=== PATIENT | male | born 1985 | race Caucasian/White ===

== ENCOUNTER 2024-09-23 09:46 | Outpatient (AMB) | payer OTHER, SELFPAY ==
--- NOTE | 2024-09-23 10:04 | A.OFFVIS_ITS ---
Vital Signs 09/23/24 10:11 Height 5 ft 10 in Weight 190 lb BMI 27.3 BP 126/70 Blood Pressure Location Rt brachial Position Sitting Pulse 77 Intake Visit Reasons: follicur cyst of skin Intake Note: Patient referred by pcp Dr. Bejarano for cyst on Rt buttock. Present for 10-15yrs. Patient c/o: lost weight and now cyst became bothersome. Denies oozing, pain. Workers Compensation Claims Specialist Required: No Accompanied by: Self / Same As Patient Allergies No Known Allergies Allergy (Verified 09/23/24 10:08) Medication List - Last Reconciled 09/23/24 by Farhat Spence MD terbinafine HCl 250 mg PO DAILY HPI HPI follicur cyst of skin: Details: 38-year-old male referred for a cyst of the skin. He has had this lump on the right buttock near the gluteal cleft for over 10 years. However, this is starting to be more bothersome to him with significant discomfort when he is sitting down. He denies any previous drainage or redness. He denies any trauma to the area in the past. [facility] Medical History Cyst of buttocks Pilonidal cyst Onychomycosis Family History Mother Skin cancer Social History Alcohol intake: current Alcohol intake frequency: holidays/special occasions only Patient Tobacco Use Status: Never used Tobacco Review of Systems Const Denies chills and Denies fever(s) Card Denies chest pain, Denies dyspnea and Denies dyspnea on exertion Resp Denies cough, Denies dyspnea and Denies dyspnea on exertion GI Denies hematochezia and Denies change in bowel habits Denies hematuria and Denies difficulty urinating Musc Denies back pain and Denies limited range of motion Neuro Denies focal weakness and Denies convulsions Psych Denies depression and Denies mood swings Physical Exam Const General: comfortable and no acute distress Orientation/consciousness: patient oriented x3 Neck Neck: Yes no lymphadenopathy Resp Auscultation: clear to auscultation bilaterally Cardio Rhythm: regular rhythm GI Palpation (GI): Soft to palpation, nontender and no guarding Back/Spine/Pelvis Other: Right buttock near the gluteal cleft - cystic induration, about 1.5 cm, consistent with an epidermal cyst, non fluctuant, no erythema Neuro General: patient oriented x3 Assessment & Plan Assessment & Plan (1) Cyst of buttocks: Code(s): L72.9 - Follicular cyst of the skin and subcutaneous tissue, unspecified Category: Medical Plan He has what appears to be a buttock cyst on the right side, about 1.5 cm in diam eter. Wants this removed. I explained to him the technique of excision under local anesthesia. I reviewed the risks including but not limited to bleeding, infections, poor healing, as well as the benefits and alternatives. He understands and wants to proceed. This will be done in the office on his next visit. Coding Level of Care Code New Pt Level 3 (05868) Diagnoses Cyst of buttocks L72.9
[2024-09-23 10:11] VITALS: BP 126/70; PULSE 77; BMI 27.3
--- OUTSIDE RECORDS SUMMARY | 2024-09-23 10:37 | XMS_ITS | Data Portability ---
Author Organization [facility], Main Office Address [address] [place] [address] [place] [id number] Care Team Providers Care Motor Setter Name Role Phone LI COLINDRES Primary Care Provider [phone] Assessment No assessment recorded. Plan of Treatment Reminders Order Date Submit Date Provider Last Modified By Organization Details Last Modified Time Details Appointments telehe alth20 2024 08:30A M Li Colindres MD Not available Not available Not available Lab lipid panel, serum 2024 025 [facility], [address] [place], [address], 09/16/2024 06:14:53 CMP, serum or plasma 2024 025 [facility] (Centralized Electronic Ordering - All Locations), Patient Can Go To The Location Of Their Choice, [id number] 09/16/2024 06:14:52 unlist ed lab - syphil is Ab reflex RPR quant 2023 024 [email or web address] [facility], [address] [place], [address], 08/20/2023 11:04:40 Hepati tis C IgG Ab, qual, serum 2023 024 [email or web address] [facility], [address] [place], [address], 08/20/2023 11:04:40 HBsAg (hepat itis B surfac e Ag), EIA, serum 2023 024 [email or web address] [facility], [address], [place], [address], 08/20/2023 11:04:40 Hepati tis B virus core Ab, qual immuno assay, serum or plasma 2023 024 [email or web address] [facility], [address], [place], [address], 08/20/2023 11:04:40 CT + NG RNA, PCR, unspec ified specim en 2023 024 [email or web address] [facility], [address], [place], [address], 08/20/2023 11:04:40 HIV 1 + 2, meanin gful use set 2023 024 [email or web address] [facility], [address], [place], [address], 08/20/2023 11:04:40 lipid panel, serum 2023 024 [email or web address] [facility], [address], [place], [address], 08/06/2023 11:50:22 CBC w/ auto diff 2023 024 [facility] [facility], [address], [address], [place], [address], 11/05/2023 14:07:30 CMP, serum or plasma 2023 024 [place] [facility], [address], [address], [place], [address], 11/05/2023 14:07:29 TSH, ultra- sensit abner, serum 2023 024 [facility] (Centralized Electronic Ordering - All Locations), Patient Can Go To The Location Of Their Choice, [id number] 11/05/2023 14:07:33 magnes ium, serum or plasma 2023 024 [facility] (Centralized Electronic Ordering - All Locations), Patient Can Go To The Location Of Their Choice, [address] 11/05/2023 14:07:33 RPR (rapid plasma reagin ), titer, serum 2021 [facility], [address], [address], [place], [address], 11/30/2021 11:11:43 HIV 1+2 AB + HIV 1 p24 Ag, qualit ative immuno assay, serum 2021 022 [place] [facility], [address], [address], [place], [address], 11/30/2021 11:11:45 HBsAg (hepat itis B surfac e Ag), serum 2021 [place] [facility], [address], [address], [place], [address], 11/30/2021 11:11:45 hbcab (hepat itis B core Ab) igm, serum 2021 022 [place] [facility], [address], [address], [place], [address], 11/30/2021 11:11:44 CT + NG DNA, PCR, urine 2021 [facility] [facility], [address], [address], [place], [address], 11/30/2021 11:11:46 hepati tis C virus Ab, serum 2021 022 [place] [facility], [address], [address], [place], [address], 11/30/2021 11:11:44 lipid panel, serum 2021 022 [email or web address] [facility], [address], [address], [place], [address], 12/07/2021 16:41:23 CBC w/ auto diff 2021 [facility] [facility], [address], [address], [place], [address], 11/30/2021 11:11:45 TSH, serum or plasma 2021 022 [place] [facility], [address], [address], [place], [address], 11/30/2021 11:11:44 CMP, serum or plasma 2021 [place] [facility], [address], [address], [place], [address], 11/30/2021 11:11:44 Referral physic al therap ist referr al - Please see for LBP 2024 025 [email or web address] Not available 09/15/2024 09:45:18 physic al therap ist referr al - Please see for neck pain 2023 024 [email or web address] Not available 01/26/2024 11:18:47 physic al therap ist referr al - Please see for neck pain/ should er blade on left side 2021 022 Not available 11/30/2021 11:41:09 Procedures None record ed. Surgeries None record ed. Imaging US, buttoc k - cystic lesion right glutea l cleft. 2024 025 [email or web address] In-Office Order, Internal Use Only DO Not Attach Compendium DO Not Attach Compendium, Do Not Delete/merge, [id number] 09/20/2024 07:59:44 XR, cervic al spine 2023 024 [email or web address] [facility], [address] , [place], [address], 08/13/2023 11:42:21 XR, scapul a 2023 024 [email or web address] [facility], [address] [place], [address], 08/13/2023 11:42:21 electr ocardi ogram 2023 024 [email or web address] In-Office Order, Internal Use Only DO Not Attach Compendium DO Not Attach Compendium, Do Not Delete/merge, [id number] 07/30/2023 11:51:50 XR, chest, 2 view 2023 024 [email or web address] In-Office Order, Internal Use Only DO Not Attach Compendium DO Not Attach Compendium, Do Not Delete/merge, [id number] 08/13/2023 11:42:21 XR, cervic al spine 2021 022 [facility], [address] [place], [address], 11/30/2021 11:41:09 Medication Orders meloxi cam 15 mg tablet 2024 025 [place] [id number], [address] [place], [address], 09/15/2024 09:41:31 meloxi cam 15 mg tablet 2021 022 [email or web address] [id number], [address] [place], [address], 09/15/2024 09:00:58 cyclob enzapr ine 10 mg tablet 2021 022 [email or web address] [id number], [address] [place], [address], 07/30/2023 11:14:46 Patient TargetsNo targets recorded. Patient Instructions Encounter Date Encounter Id Patient Instructions Last Modified By Organization Details Last Modified Time 11/30/2021 [id number] neck: exercises [email or web address] Not available 11/30/2021 11:20:00 healthy upper back: exercises [email or web address] Not available 11/30/2021 11:20:00 Well Visit, Ages 18 to 65: Care Instructions [email or web address] Not available 11/30/2021 11:11:34 When You Want to Lose Weight: Care Instructions [email or web address] Not available 11/30/2021 11:11:34 07/30/2023 [id number] neck: exercises [email or web address] Not available 07/30/2023 11:28:42 healthy upper back: exercises [email or web address] Not available 07/30/2023 11:28:43 Well Visit, Ages 18 to 65: Care Instructions [email or web address] Not available 07/30/2023 11:28:42 When You Want to Lose Weight: Care Instructions [email or web address] Not available 07/30/2023 11:28:43 09/15/2024 [id number] low back pain: exercises [email or web address] Not available 09/15/2024 09:41:23 toenail fungus: care instructions [email or web address] Not available 09/15/2024 09:41:23 Reason for Referral Physical Therapist Referral for Neck pain Please see for neck pain/ shoulder blade on left side Referring Physician: Li Colindres [facility], Encounter Date: 11/30/2021 Physical Therapist Referral for Neck pain Please see for neck pain Referring Physician: Li Colindres [facility], Encounter Date: 07/30/2023 Physical Therapist Referral for Chronic low back pain Please see for LBP Referring Physician: Li Colindres [facility], Encounter Date: 09/15/2024 Results Created Date Observation Date Name Description Value Unit Range Abnormal Flag Note LastModifiedBy Organization Detail LastModifiedTime 11/03/19 24 11/04/2023 CMP14 (REFL EX HGB A1C) glucose 96 mg/dL 70-99 Not Available [facility] ([facility]) [address] [facility], [place], [address], 11/05/2023 14:07:29 11/03/19 24 11/04/2023 CMP14 (REFL EX HGB A1C) BUN 8 mg/dL 6-20 Not Available [facility] ([facility]) [address] [place], [address], 11/05/2023 14:07:29 11/03/19 24 11/04/2023 CMP14 (REFL EX HGB A1C) creatinine 0.74 mg/dL 0.76-1 .27 below low normal Not Available [facility] ([facility]) [address] [facility], [place], [address], 11/05/2023 14:07:29 11/03/19 24 11/04/2023 CMP14 (REFL EX HGB A1C) eGFR 119 mL/mi n/1.7 3 >59 Not Available [facility] ([facility]) [address] [place], [address], 11/05/2023 14:07:29 11/03/19 24 11/04/2023 CMP14 (REFL EX HGB A1C) BUN/creatini ne ratio 11 9-20 Not Available [facility] ([facility]) [address] [place], [address], 11/05/2023 14:07:29 11/03/19 24 11/04/2023 CMP14 (REFL EX HGB A1C) sodium 143 mmol/ L 134-14 4 Not Available [facility] ([facility]) [address] [place], [address], 11/05/2023 14:07:29 11/03/19 24 11/04/2023 CMP14 (REFL EX HGB A1C) potassium 4.6 mmol/ L 3.5-5. 2 Not Available [facility] ([facility]) [address] [place], [address], 11/05/2023 14:07:29 11/03/19 24 11/04/2023 CMP14 (REFL EX HGB A1C) chloride 104 mmol/ L 96-106 Not Available [facility] ([facility]) [address] [place], [address], 11/05/2023 14:07:29 11/03/19 24 11/04/2023 CMP14 (REFL EX HGB A1C) carbon dioxide, total 24 mmol/ L 20- Not Available [facility] ([facility]) [address] [place], [address], 11/05/2023 14:07:29 11/03/19 24 11/04/2023 CMP14 (REFL EX HGB A1C) calcium 9.6 mg/dL 8.7-10 .2 Not Available [facility] ([facility]) [address] [place], [address], 11/05/2023 14:07:29 11/03/19 24 11/04/2023 CMP14 (REFL EX HGB A1C) protein, total 6.9 g/dL 6.0-8. 5 Not Available [facility] ([facility]) [address] [place], [address], 11/05/2023 14:07:29 11/03/19 24 11/04/2023 CMP14 (REFL EX HGB A1C) albumin 4.7 g/dL 4.1-5. 1 Not Available [facility] ([facility]) [address] [place], [address], 11/05/2023 14:07:29 11/03/19 24 11/04/2023 CMP14 (REFL EX HGB A1C) globulin, total 2.2 g/dL 1.5-4. 5 Not Available [facility] ([facility]) [address] [place], [address], 11/05/2023 14:07:29 11/03/19 24 11/04/2023 CMP14 (REFL EX HGB A1C) bilirubin, total 0.4 mg/dL 0.0-1. 2 Not Available [facility] ([facility]) [address] [place], [address], 11/05/2023 14:07:29 11/03/19 24 11/04/2023 CMP14 (REFL EX HGB A1C) alkaline phosphatase 74 IU/L 44-121 Not Available [facility]) [address] [facility], [place], [address], 11/05/2023 14:07:29 11/03/19 24 11/04/2023 CMP14 (REFL EX HGB A1C) AST (SGOT) 22 IU/L 0-40 Not Available [facility] ([facility]) [address] [facility], [place], [address], 11/05/2023 14:07:29 11/03/19 24 11/04/2023 CMP14 (REFL EX HGB A1C) ALT (SGPT) 34 IU/L 0-44 Not Available [facility] ([facility]) [address] [facility], [place], [address], 11/05/2023 14:07:29 11/03/19 24 11/04/2023 CBC WITH DIFFE RENTI AL/PL ATELE T WBC 6.9 x10e3 /uL 3.4-10 .8 Not Available [facility] ([facility]) [address] [facility], [place], [address], 11/05/2023 14:07:30 11/03/19 24 11/04/2023 CBC WITH DIFFE RENTI AL/PL ATELE T RBC 5.00 x10e6 /uL 4.14-5 .80 Not Available [facility] ([facility]) [address] [facility], [place], [address], 11/05/2023 14:07:30 11/03/19 24 11/04/2023 CBC WITH DIFFE RENTI AL/PL ATELE T hemoglobin 15.9 g/dL 13.0-1 7.7 Not Available [facility] ([facility]) [address] [place], [address], 11/05/2023 14:07:30 11/03/19 24 11/04/2023 CBC WITH DIFFE RENTI AL/PL ATELE T hematocrit 47.7 % 37.5-5 1.0 Not Available [facility] ([facility]) [address] [facility], [place], [address], 11/05/2023 14:07:30 11/03/19 24 11/04/2023 CBC WITH DIFFE RENTI AL/PL ATELE T MCV 95 fL 79-97 Not Available [facility] ([facility]) [address] [facility], [place], [address], 11/05/2023 14:07:30 11/03/19 24 11/04/2023 CBC WITH DIFFE RENTI AL/PL ATELE T MCH 31.8 pg 26.6-3 3.0 Not Available [facility] ([facility]) [address] [facility], [place], [address], 11/05/2023 14:07:30 11/03/19 24 11/04/2023 CBC WITH DIFFE RENTI AL/PL ATELE T MCHC 33.3 g/dL 31.5-3 5.7 Not Available [facility] ([facility]) [address] [facility], [place], [address], 11/05/2023 14:07:30 11/03/19 24 11/04/2023 CBC WITH DIFFE RENTI AL/PL ATELE T RDW 12.7 % 11.6-1 5.4 Not Available [facility] ([facility]) [address] [facility], [place], [address], 11/05/2023 14:07:30 11/03/19 24 11/04/2023 CBC WITH DIFFE RENTI AL/PL ATELE T platelets 262 x10e3 /uL 150-45 0 Not Available [facility] ([facility]) [address] [place], [address], 11/05/2023 14:07:30 11/03/19 24 11/04/2023 CBC WITH DIFFE RENTI AL/PL ATELE T neutrophils 69 % not estab. Not Available [facility] ([facility]) [address] [place], [address], 11/05/2023 14:07:30 11/03/19 24 11/04/2023 CBC WITH DIFFE RENTI AL/PL ATELE T lymphs 19 % not estab. Not Available [facility] ([facility]) [address] [facility], [place], [address], 11/05/2023 14:07:30 11/03/19 24 11/04/2023 CBC WITH DIFFE RENTI AL/PL ATELE T monocytes 9 % not estab. Not Available [facility] ([facility]) [address] [facility], [place], [address], 11/05/2023 14:07:30 11/03/19 24 11/04/2023 CBC WITH DIFFE RENTI AL/PL ATELE T eos 2 % not estab. Not Available [facility] ([facility]) [address] [facility], [place], [address], 11/05/2023 14:07:30 11/03/19 24 11/04/2023 CBC WITH DIFFE RENTI AL/PL ATELE T basos 1 % not estab. Not Available [facility] ([facility]) [address] [facility], [place], [address], 11/05/2023 14:07:30 11/03/19 24 11/04/2023 CBC WITH DIFFE RENTI AL/PL ATELE T immature cells CLIENT APPLICATION SUPPORT ENGINEER Not Available [facility] ([facility]) [address] [facility], [place], [address], 11/05/2023 14:07:30 11/03/19 24 11/04/2023 CBC WITH DIFFE RENTI AL/PL ATELE T neutrophils (absolute) 4.8 x10e3 /uL 1.4-7. 0 Not Available [facility] ([facility]) [address] [facility], [place], [address], 11/05/2023 14:07:30 11/03/19 24 11/04/2023 CBC WITH DIFFE RENTI AL/PL ATELE T lymphs (absolute) 1.3 x10e3 /uL 0.7-3. 1 Not Available [facility] ([facility]) [address] [facility], [place], [address], 11/05/2023 14:07:30 11/03/19 24 11/04/2023 CBC WITH DIFFE RENTI AL/PL ATELE T monocytes(ab solute) 0.6 x10e3 /uL 0.1-0. 9 Not Available [facility] ([facility]) [address] [facility], [place], [address], 11/05/2023 14:07:30 11/03/19 24 11/04/2023 CBC WITH DIFFE RENTI AL/PL ATELE T eos (absolute) 0.1 x10e3 /uL 0.0-0. 4 Not Available [facility] ([facility]) [address] [facility], [place], [address], 11/05/2023 14:07:30 11/03/19 24 11/04/2023 CBC WITH DIFFE RENTI AL/PL ATELE T baso (absolute) 0.1 x10e3 /uL 0.0-0. 2 Not Available [facility] ([facility]) [address] [facility], [place], [address], 11/05/2023 14:07:30 11/03/19 24 11/04/2023 CBC WITH DIFFE RENTI AL/PL ATELE T immature granulocytes 0 % not estab. Not Available [facility] ([facility]) [address] [place], [address], 11/05/2023 14:07:30 11/03/19 24 11/04/2023 CBC WITH DIFFE RENTI AL/PL ATELE T immature grans (abs) 0.0 x10e3 /uL 0.0-0. 1 Not Available [facility] ([facility]) [address] [place], [address], 11/05/2023 14:07:30 11/03/19 24 11/04/2023 CBC WITH DIFFE RENTI AL/PL ATELE T NRBC CLIENT APPLICATION SUPPORT ENGINEER Not Available [facility] ([facility]) [address] [facility], [place], [address], 11/05/2023 14:07:30 11/03/19 24 11/04/2023 CBC WITH DIFFE RENTI AL/PL ATELE T hematology comments: CLIENT APPLICATION SUPPORT ENGINEER Not Available [facility] ([facility]) [address] [place], [address], 11/05/2023 14:07:30 11/03/19 24 11/04/2023 LIPID PANEL cholesterol, total 200 mg/dL 100-19 9 above high normal Not Available [facility] ([facility]) [address] [place], [address], 11/05/2023 14:07:30 11/03/19 24 11/04/2023 LIPID PANEL triglyceride s 161 mg/dL 0-149 above high normal Not Available [facility] ([facility]) [address] [place], [address], 11/05/2023 14:07:30 11/03/19 24 11/04/2023 LIPID PANEL HDL cholesterol 42 mg/dL >39 Not Available [facility] ([facility]) [address] [place], [address], 11/05/2023 14:07:30 11/03/19 24 11/04/2023 LIPID PANEL VLDL cholesterol elen 29 mg/dL 5-40 Not Available [facility] ([facility]) [address] [place], [address], 11/05/2023 14:07:30 11/03/19 24 11/04/2023 LIPID PANEL LDL chol calc ([facility]) 129 mg/dL 0-99 above high normal Not Available [facility] ([facility]) [address] [place], [address], 11/05/2023 14:07:30 11/03/19 24 11/04/2023 LIPID PANEL LDL calc comment: CLIENT APPLICATION SUPPORT ENGINEER Not Available [facility] ([facility]) [address] [facility], [place], [address], 11/05/2023 14:07:30 11/03/19 24 11/04/2023 CHLAM YDIA/ GC AMPLI FICAT ION chlamydia trachomatis, MATTHEW Negati ve negati ve Not Available [facility] ([facility]) [address] [facility], [place], [address], 11/05/2023 14:07:31 11/03/19 24 11/04/2023 CHLAM YDIA/ GC AMPLI FICAT ION neisseria gonorrhoeae, MATTHEW Negati ve negati ve Not Available [facility] ([facility]) [address] [facility], [place], [address], 11/05/2023 14:07:31 11/03/19 24 11/04/2023 HCV ANTIB LUCSA RFX TO QUANT PCR HCV Ab Non Reacti ve non reacti ve Not Available [facility] ([facility]) [address] [facility], [place], [address], 11/05/2023 14:07:31 11/03/19 24 11/04/2023 HCV ANTIB LUCAS RFX TO QUANT PCR interpretati on: Commen t Not infec amelia with HCV unles s early or acute infec tion is suspe cted (whic h may be delay ed in an immun ocomp romis ed indiv idual ), or other evide nce exist s to indic ate HCV infec tion. Not Available [facility] ([facility]) [address] [facility], [place], [address], 11/05/2023 14:07:31 11/03/19 24 11/04/2023 HIV AB/P2 4 AG WITH REFLE X HIV Ab/P24 Ag screen Non Reacti ve non reacti ve HIV Negat abner HIV-1 /HIV- 2 antib odies and HIV-1 p24 antig en were NOT detec amelia. There is no labor atory evide nce of HIV infec tion. Not Available [facility] ([facility]) [address] [facility], [place], [address], 11/05/2023 14:07:32 11/03/19 24 11/05/2023 SYPHI LIS AB REFLE X RPR QUANT donor syphilis (T pallidum) Non Reacti ve non reacti ve Test perfo rmed with [employer] er PK TP kit. Not Available [facility] ([facility]) [address] [facility], [place], [address], 11/05/2023 14:07:32 11/03/19 24 11/04/2023 TSH RFX ON ABNOR MAL TO FREE T4 TSH 1.730 uIU/m L 0.450- 4.500 Not Available [facility] ([facility]) [address] [facility], [place], [address], 11/05/2023 14:07:33 11/03/19 24 11/04/2023 MAGNE SIUM magnesium 2.1 mg/dL 1.6-2. 3 Not Available [facility] ([facility]) [address] [place], [address], 11/05/2023 14:07:33 11/03/19 24 11/04/2023 HBSAG SCREE N HBsAg screen Negati ve negati ve Not Available [facility] ([facility]) [address] [place], [address], 11/05/2023 14:07:34 11/03/19 24 11/04/2023 HEP B CORE AB, TOT hep B core Ab, tot Negati ve negati ve Not Available [facility] ([facility]) [address] [place], [address], 11/05/2023 14:07:34 09/16/19 25 09/16/2024 CMP14 (REFL EX HGB A1C) glucose 98 mg/dL 70-99 normal Not Available [facility] ([facility]) [address] [place], [address], 09/16/2024 06:14:52 09/16/19 25 09/16/2024 CMP14 (REFL EX HGB A1C) BUN 13 mg/dL 6-20 normal Not Available [facility] ([facility]) [address] [place], [address], 09/16/2024 06:14:52 09/16/19 25 09/16/2024 CMP14 (REFL EX HGB A1C) creatinine 0.85 mg/dL 0.76-1 .27 normal Not Available [facility] ([facility]) [address] [place], [address], 09/16/2024 06:14:52 09/16/19 25 09/16/2024 CMP14 (REFL EX HGB A1C) eGFR 113 mL/mi n/1.7 3 >59 normal Not Available [facility] ([facility]) [address] [place], [address], 09/16/2024 06:14:52 09/16/19 25 09/16/2024 CMP14 (REFL EX HGB A1C) BUN/creatini ne ratio 15 9-20 normal Not Available [facility] ([facility]) [address] [place], [address], 09/16/2024 06:14:52 09/16/19 25 09/16/2024 CMP14 (REFL EX HGB A1C) sodium 143 mmol/ L 134-14 4 normal Not Available [facility] ([facility]) [address] [place], [address], 09/16/2024 06:14:52 09/16/19 25 09/16/2024 CMP14 (REFL EX HGB A1C) potassium 4.4 mmol/ L 3.5-5. 2 normal Not Available [facility] ([facility]) [address] [place], [address], 09/16/2024 06:14:52 09/16/19 25 09/16/2024 CMP14 (REFL EX HGB A1C) chloride 102 mmol/ L 96-106 normal Not Available [facility] ([facility]) [address] [place], [address], 09/16/2024 06:14:52 09/16/19 25 09/16/2024 CMP14 (REFL EX HGB A1C) carbon dioxide, total 21 mmol/ L 20-29 normal Not Available [facility] ([facility]) [address] [place], [address], 09/16/2024 06:14:52 09/16/1909/16/2024 CMP14 (REFL EX HGB A1C) calcium 10.0 mg/dL 8.7-10 .2 normal Not Available [facility] ([facility]) [address] [place], [address], 09/16/2024 06:14:52 09/16/1909/16/2024 CMP14 (REFL EX HGB A1C) protein, total 7.2 g/dL 6.0-8. 5 normal Not Available [facility] ([facility]) [address] [place], [address], 09/16/2024 06:14:52 09/16/19 25 09/16/2024 CMP14 (REFL EX HGB A1C) albumin 5.2 g/dL 4.1-5. 1 above high normal Not Available [facility] ([facility]) [address] [place], [address], 09/16/2024 06:14:52 09/16/19 25 09/16/2024 CMP14 (REFL EX HGB A1C) globulin, total 2.0 g/dL 1.5-4. 5 Not Available [facility] ([facility]) [address] [facility] [place] [place], [address], 09/16/2024 06:14:52 09/16/19 25 09/16/2024 CMP14 (REFL EX HGB A1C) bilirubin, total 0.4 mg/dL 0.0-1. 2 normal Not Available [facility] ([facility]) [address] [facility] [place], [address], 09/16/2024 06:14:52 09/16/19 25 09/16/2024 CMP14 (REFL EX HGB A1C) alkaline phosphatase 72 IU/L 44-121 normal Not Available [facility] ([facility]) [address] [facility] [place], [address], 09/16/2024 06:14:52 09/16/19 25 09/16/2024 CMP14 (REFL EX HGB A1C) AST (SGOT) 17 IU/L 0-40 normal Not Available [facility] ([facility]) [address] [facility] [place], [address], 09/16/2024 06:14:52 09/16/1909/16/2024 CMP14 (REFL EX HGB A1C) ALT (SGPT) 27 IU/L 0-44 normal Not Available [facility] ([facility]) [address] [place], [address], 09/16/2024 06:14:52 09/16/19 25 09/16/2024 LIPID PANEL cholesterol, total 188 mg/dL 100-19 9 normal Not Available [facility] ([facility]) [address] [place], [address], 09/16/2024 06:14:53 09/16/19 25 09/16/2024 LIPID PANEL triglyceride s 72 mg/dL 0-149 normal Not Available [facility] ([facility]) [address] [place], [address], 09/16/2024 06:14:53 09/16/19 25 09/16/2024 LIPID PANEL HDL cholesterol 44 mg/dL >39 normal Not Available [facility] ([facility]) [address] [facility], [place], [address], 09/16/2024 06:14:53 09/16/19 25 09/16/2024 LIPID PANEL VLDL cholesterol elen 13 mg/dL 5-40 Not Available [facility] ([facility]) [address] [facility], [place], [address], 09/16/2024 06:14:53 09/16/19 25 09/16/2024 LIPID PANEL LDL chol calc ([facility]) 131 mg/dL 0-99 above high normal Not Available [facility] ([facility]) [address] [facility], [place], [address], 09/16/2024 06:14:53 09/16/19 25 09/16/2024 LIPID PANEL LDL calc comment: CLIENT APPLICATION SUPPORT ENGINEER Not Available [facility] ([facility]) [address] [facility], [place], [address], 09/16/2024 06:14:53 07/30/19 24 07/30/2023 elect rocar diogr am No observ ation record ed. [email or web address] In-Office Order Internal Use Only DO Not Attach Compendium DO Not Attach Compendium, Do Not Delete/merge, [id number] 07/30/2023 16:29:15 07/30/19 elect rocar diogr am No observ ation record ed. [email or web address] In-Office Order Internal Use Only DO Not Attach Compendium DO Not Attach Compendium, Do Not Delete/merge, [id number] 07/30/2023 12:26:54 10/29/19 24 10/29/2023 XR, scapu la Scapul a Left 2 views Reason : pain in should er COMPAR RADHA: None. FINDIN GS: No fractu res or bone lesion s. No arthri tic change s. Normal soft tissue s. IMPRES DAVID: Normal . WSN: [id number] Orderi ng Physic aide: Kinga Colindres Dictat ed By: Ladonna Prince MD Dictat ed Date/T gunnar: 12:51 p Review ed By: Kathleen king MD, Ladonna mercer Signed By: Ladonna Prince MD Signed Date/T gunnar: 12:51 pm Transc ribed By: LIANNE Transc ribed Date/T gunnar: 12:51 pm Patien t Class: Outpat ient [facility] (Outpt Imaging) [address], [place], [address], 10/30/2023 10:26:29 10/29/19 24 10/29/2023 XR, scapu la No observ ation record ed. [email or web address] [facility] [address] [facility], [place], [address], 10/30/2023 11:51:43 09/21/19 25 09/20/2024 US, pelvi s US Soft Tissue Pelvis / Buttoc ks Reason : L72.9 Follic ular cyst of the skin and subcut aneous tissue , unspec ified. Patien t report s 10-yea r histor y of nonten oscar palpab le findin g with slight increa se in size. COMPAR RADHA: None. FINDIN GS: High-r esolut ion, linear array, graysc chioma and color Dopple r imagin g of the superf icial soft tissue s of the right buttoc k was perfor med in the area of the patien t's palpab le findin g. Corres pondin g to the patien t's palpab le findin g, there is a well-c ircums cribed hetero geneou sly isoech oic focus within the subcut aneous fat measur ing 1.2 x 0.7 x 1.3 cm. It produc es mild rough and truing machine operator ior acoust ic shadow ing and there is no signif icant music internship al vascul arity on color Dopple r imagin g. It exhibi ts broad contac t with the dermis withou t defini te tract to the skin surfac e IMPRES DAVID: The patien t's palpab le findin g corres ponds to a 1.3 cm hetero geneou sly isoech oic focus within the subcut aneous fat. The sonogr aphic appear ance is nonspe cific, althou gh patien t-repo rted relati ve stabil ity favors a benign etiolo gy. Differ ential includ es epider mal inclus ion or pilar cyst, althou gh rough and truing machine operator ior acoust ic shadow would be atypic al. A focus of fat necros is could also be consid ered. If the patien t's palpab le findin g increa ses in size or become s progre ssivel y sympto matic, correl ation with MRI could be consid ered. WSN: [id number] Orderi ng Physic aide: Kinga Colindres Dictat ed By: Roddy Frost MD Dictat ed Date/T gunnar: 4:24 pm Review ed By: Roddy Frost MD Signed By: Roddy Frost MD Signed Date/T gunnar: 4:24 pm Transc ribed By: LIANNE Transc ribed Date/T gunnar: 4:07 pm Patien t Class: Outpat ient [facility] (Outpt Imaging) [address] [facility], [place], [address], 09/20/2024 18:58:19 09/21/19 25 09/20/2024 imagi ng/damián steve tic resul t No observ ation record ed. [email or web address] [address], [place], [address], 09/20/2024 17:00:54 Result Notes None recorded. Problems Name Problem SNOMED Code Status Onset Date Resolution Date Notes Provider Name and Address Organization Details Recorded Time Overweight 240685713 Active 022 Li Colindres MD [address] [facility] [address], [place], [address], [facility] 2 11:11:00 Problem Notes None recorded. Procedures Surgical History Date Name Laterality Status Provider Name and Address Organization Details Recorded Time removal of pilonidal cyst completed Anum Medina [facility] 11/30/2021 10:31:52 extraction of wisdom tooth completed Anum Medina [facility] 11/30/2021 10:31:59 Imaging Results Imaging Date Name Status LastModified by Organization Details LastModified Time 07/30/2023 electrocardiogram completed jabari In- Office Order Internal Use Only DO Not Attach Compendium DO Not Attach Compendium, Do Not Delete/merge, [id number] 07/30/2023 16:29:15 07/30/2023 electrocardiogram completed jolynn In-Offi ce Order Internal Use Only DO Not Attach Compendium DO Not Attach Compendium, Do Not Delete/merge, [id number] 07/30/2023 12:26:54 10/29/2023 XR, scapula completed [facility] (Outpt Imaging) [address] [place], [address], 10/30/2023 10:26:29 10/29/2023 XR, scapula completed [address] [facility] [address], [place], [address], 10/30/2023 11:51:43 09/20/2024 US, pelvis completed [facility] (Outpt Imaging) [address] [place], [address], 09/20/2024 18:58:19 09/20/2024 [facility] [address], [place], [address], 09/20/2024 17:00:54 Procedure Notes None recorded. Medical Equipment None Reported. Allergies No known drug allergies Medications Name Sig Start Date Stop Date Status Note LastModified by Organization Details LastModified Time cyclobenzapr ine 10 mg tablet Take 1 tablet every day by oral route as needed for 5 days. 07/29 completed Not Available Not Available Not Available meloxicam 15 mg tablet Take 1 tablet every day by oral route as needed for 30 days. 2024 active Not Available Not Available Not Avai lable terbinafine HCl 250 mg tablet Take 1 tablet every day by oral route for 42 days. 2024 active Not Available Not Available Not Avai lable Multivitamin Gummies 2 gummies daily 09/15 completed Not Available Not Available Not Available Vitals Date Recorded Body height Body mass index (BMI) Body weight Heart rate Oxygen saturation Oxygen saturation in Arterial blood by Pulse oximetry Body temperature Systolic blood pressure Diastolic blood pressure Provider Name and Address Organization Details Last Updated DateTime 2 182.88 cm 28.4 kg/m2 72766.5 1 g 67 /min 97 % 97 % 98.06 [degF] 120 mm[Hg] 78 mm[Hg] Anum Medina [facility] 2 10:35:07 Date Recorded Body height Body mass index (BMI) Body weight Heart rate Oxygen saturation Oxygen saturation in Arterial blood by Pulse oximetry Body temperature Systolic blood pressure Diastolic blood pressure Provider Name and Address Organization Details Last Updated DateTime 4 182.88 cm 27.3 kg/m2 27150.1 7 g 77 /min 97 % 97 % 97.9 [degF] 111 mm[Hg] 70 mm[Hg] Arianne Arboleda [facility] 4 11:14:22 Date Recorded Body height Body mass index (BMI) Body weight Oxygen saturation Oxygen saturation in Arterial blood by Pulse oximetry Body temperature Heart rate Systolic blood pressure Diastolic blood pressure Provider Name and Address Organization Details Last Updated DateTime 5 182.88 cm 25.6 kg/m2 05829.1 7 g 100 % 100 % 97.7 [degF] 67 /min 110 mm[Hg] 70 mm[Hg] Hansa Velasquez [facility] 5 08:59:59 Social History Question Answer Notes LastModified by Organizat ion Details LastModified Time Tobacco Smoking Status [facility]/30[facility] 10:42:28 Is Blood Transfusion Acceptable In An Emergency? Yes Information not available 11/30/2021 What Is Your Level Of Caffeine Consumption? Heavy 1 Pot Of Black Coffee Daily Information not available 11/30/2021 How Much Tobacco Do You Chew? None Information not available 11/30/2021 What Type Of Diet Are You Following? REGULAR Information not available 11/30/2021 Which Illicit Or Recreational Drugs Have You Used? Marijuana Information not available 11/30/2021 When Did You Quit Smoking? 11-15yearssin ronny te Quit In 2007 Information not available 11/30/2021 Do You Take Precautions To Prevent Distracted Driving? Yes Information not available 11/30/2021 How Often Do You Need To Have Someone Help You When You Read Instructions, Pamphlets, Or Other Written Material From Your Doctor Or Pharmacy? Never Information not available 11/30/2021 Have You Served In The ? No [email or web address] Information not available 09/15/2024 How Many Children Do You Have? 0 Information not available 11/30/2021 What Is Your Current Pack Years? 10packyears Information not available 11/30/2021 Do You Use Protection During Sex? Usually Information not available 11/30/2021 Do You Use Your Seat Belt Or Car Seat Routinely? Yes Information not available 11/30/2021 Are You Sexually Active? No Information not available 11/30/2021 Do You Have Smoke And Carbon Monoxide Detectors In Your Home? Yes Information not available 11/30/2021 At What Age Did You Start Smoking Tobacco? 17 Information not available 11/30/2021 Are You Passively Exposed To Smoke? No Information not available 11/30/2021 How Much Tobacco Do You Smoke? No Information not available 11/30/2021 Do You Use Sunscreen Routinely? Yes Information not available 11/30/2021 How Many Years Have You Smoked Tobacco? 8 Information not available 11/30/2021 Sex: Unknown Functional Status Question Answer Note LastModified by Organizat ion Details LastModified Time Do you use any illicit or recreational drugs? Yes Information not available 11/30/2021 Do you or have you ever used any other forms of tobacco or nicotine? No Information not available 11/30/2021 What is your level of alcohol consumption? Occasional Only a few times a year samm Information not available 07/30/2023 Do you or have you ever used smokeless tobacco? Never used smokeless tobacco Information not available 11/30/2021 Are you currently employed? Yes Information not available 11/30/2021 Are you able to walk? YESWOREST Information not available 11/30/2021 Are you able to care for yourself? 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 Occasional Information not available 11/30/2021 Mental Status None recorded. Family History Relationship Description Onset Age of this Age Resolved Age Notes LastModified by Organization Details LastModified Time Father Diabetes mellitus Not available 2021 10:21:37 Mother Obstructive sleep apnea syndrome ckokar Not available 2023 12:29:16 Medical History Condition Response ADHD Y Chicken Pox Y Immunizations Vaccine Type Date Status Note Provider Nam e and Address Organization Details Recorded Time COVID-19, mRNA, LNP-S, PF, 30 mcg/0.3 mL dose 09/20/2020 completed [facility] 11/30/2021 10:29:48 COVID-19, mRNA, LNP-S, PF, 30 mcg/0.3 mL dose 08/30/2020 completed HERMES Rae [facility] 11/30/2021 10:29:49 COVID-19, mRNA, LNP-S, PF, 100 mcg/0.5mL dose or 50 mcg/0.25mL dose 04/27/2021 completed HERMES [facility] 07/30/2023 11:14:03 Tdap 10/28/2023 completed Not Available [facility] 09/15/2024 08:49:57 Past Encounters Encounter ID Performer Location Encounter Start Date Encounter Closed Date Diagnosis/Indication Diagnosis SNOMED-CT Code Diagnosis ICD10 Code Diagnosis Note [id number] Li Colindres MD Main Office [address] [facility] [address] [place] [address] 11/30/2021 10:07:21 11/30/2021 11:41:08 Adult health examination 628401106 Z00.00 Patient was counseled on healthy diet, exercise and nutrition due to Body mass index is 28.4 kg/m? ? ?. Prostate/C olon CA hx?: no fhx, asymptomat ic Vaccines:T dAP: script providedZo ster Rec: not [id number]: not dueInfluen za: not in seaonCovid : 08/30/20, 09/20/20, 04/23/21 Routine labs today, with STI workup Immunizati on status reviewed. Will screen based on risk factors. Regular dental and ophtho care advised as well as seat belt and sunscreen use. Distracted driving discussed. Medication reconciled . Fatigue 77089117 R53.83 Hyperlipidemia 92271686 E78.5 Venereal d isease screening 716897876 Z11.3 Patient ne w to provider [id number] 91323 Z76.89 Administra tion of viral vaccine 64023692 Z23 Body mass index 25-29 - overweight 577429277 E66.3 Z68.25 - Diet and exercise discussed- Encouraged to loose weight.- Avoid starchy and fatty food- Encouraged use of green vegetables and fruits Overweight 376163556 E66 .3 Snoring 11720947 R06.83 Neck pain 68476753 M54.2 Cervicalgi a with radiculopa thy.Risk of sedation with MSK relaxant advised. He is aware not to operate machinery, MV or drink while on meds.Take mobic with food and avoid other NSAIDSent for PT/exercis es provided. Scapulalgia 55238370 M25 .519 [id number] Li Colindres MD Main Office [address] [facility] [address] [place] [place] [address] 07/30/2023 10:55:33 07/30/2023 11:51:49 Adult health examination 461461841 Z00.00 Patient was counseled on healthy diet, exercise and nutrition due to Body mass index is 27.3 kg/m? ? ?. Prostate/C olon CA hx?: no fhx, asymptomat ic Vaccines:T dAP: script providedZo ster Rec: not eptJVX07: not dueInfluen za: not in seasonCovi d: Encourage updated vaccine. Routine labs today, with STI workup Immunizati on status reviewed. Will screen based on risk factors. Regular dental and ophtho care advised as well as seat belt and sunscreen use. Distracted driving discussed. Medication reconciled . Fatigue 56987571 R53.83 Hyperlipidemia 05674935 E78.5 Administra tion of viral vaccine 31523737 Z23 Body mass index 25-29 - overweight 936694064 E66.3 Z68.25 - Diet and exercise discussed- Encouraged to loose weight.- Avoid starchy and fatty food- Encouraged use of green vegetables and fruits Overweight 005142246 E66 .3 Snoring 96978378 R06.83 He will work on weight loss first if he continue to snore he will let me know and we can consider having him see sleep med.His mom has TOBI Venereal d isease screening 154017228 Z20.2 Z11.3 Z72.89 Scapulalgia 18302453 M25 .519 Neck pain 57006284 M54.2 Cervicalgi a with radiculopa thy.Radicu lopathy sx improved.M eloxicam and msk relaxant did not help.PT provided some relief, but cut it short due to cost, open to restarting - referral provided.H e did not get x-ray as instructio n.If no improvemen t he will call and can consider physiatry eval. Chest discomfort 6639635 09 R07.89 occurred 2 weeks ago, feels like msk but not reproducib le on palpation. Occurs when he stretches. I suspect this is msk related as it occurs when stretching but will get baseline ECG.ED precaution discussed. Stretching exercises advised.If no improvemen t he was advised to call. [id number] Li Colindres MD Main Office [address] [facility] [address] [facility] [place] [address] 09/15/2024 08:48:23 09/15/2024 09:45:18 Adult health examination 591714250 Z00.00 Patient was counseled on healthy diet, exercise and nutrition due to Body mass index is 25.6 kg/m? ? ?. Prostate/C olon CA hx?: no fhx, asymptomat ic Vaccines:T dAP: 10/28/23Zos ter Rec: not [id number]: not dueInfluen za: not in seasonCovi d: Encourage updated vaccine. Routine labs today Immunizati on status reviewed. Will screen based on risk factors. Regular dental and ophtho care advised as well as seat belt and sunscreen use. Distracted driving discussed. Medication reconciled . Onychomycosis 125221217 B35.1 Will tx after I get lft. He is aware he will need to repeat LFT 6 weeks after I send tx due to hepatic toxicity. Will follow up tele health 7 weeks. Fatigue 37467089 R53.83 Z00.00 Hyperlipidemia 72169867 E78.5 Z00.00 FASTING Chronic low back pain 27 9759865 M54.42 G89.29 with radiculopa thy.Will send Meloxicam aware not to use with other otc nsaid, advised to take with meal and hydration enforced.E ncouraged PTCan consider xray if no improvemen t.If no improvemen t will consider MRI/physia try eval after trial po steroid/ga bapentin/m sk relaxant. Cyst of skin 225757364 L 72.9 No drainage warmth or erythema hard mobile nodular lesion will get US the consider surgeon eval as it is bothering him. No sign of infection or role in abx. Health Concerns Section Related Observation LastModified by Organization Detai ls LastModified Time None Recorded Concern Status LastModified by Organization Details LastModified Time None Recorded Advance Directives Directive None Recorded Payers Encounter Date Sequence Insurance Name Policy Number Policy Bowman Covered Member ID Bowman Member ID Guarantor Name 11/30/2021 1 [facility] [id number] Ruddy Romero [id number] 1 Willie Romero 07/30/2023 1 [facility] [id number] Ruddy Romero [id number] 1 Willie Romero 09/15/2024 1 [facility] [id number] Ruddy Romero [id number] 1 Willie Romero Notes Date Note Type Note Provider Name and Address Organization Details Recorded Time 11/30/2021 text/html Back PainReporte d bypatient.Location :from neck radiates to finger tips Quality:tingling Severity:worsening Duration:2 yrs Context:unusual activity Alleviating Factors:relieved by changing position Aggravating Factors:extended neck Associated Symptoms:no fever; no weak limbs; no numbness of the legs/feet; no incontinence; no shortness of breath;tingling Patient present for well/new adult visit Complaints: Is not using ASA. OTC/Herbal supplements use: Rare use of mulitvitamin. Sex hx: Not active pref. for F.STI: deniesDrug use: marijuana smoke/edibleEtoh use: rare.tobacco use: former smoker last used 2007, 1 ppd for 8yrsspf/derm: wears occasionally, notes moles on back. Dental: up to date follows every 6mo.Eye: due, advised followsDiet: no restrictionActivit y: walk dogs and 1/week 3-4mile walk Li Colindres MD [address], [address] 11/30/2021 11:36:40 07/30/2023 text/html Angina/Chest PainReported bypatient.Location :chest; Does not radiates. Quality:tightness Severity:not limiting Duration:lasts seconds Context:Not tender to touch, does not occur when leaning forward. Aggravating Factors:worse with activity(stretchin g back) Associated Symptoms:no dyspnea; no decrease in exercise capacity; no fatigue; no nocturnal episodes; no resting episodes; no associated palpitations; no associated dizziness; no calf pain, no travel in last 4 weeks. Here for PE visit. Reviewed chronic medications and medical problems. Discussed screening guidelines as well as goals for fitness and weight management. Brittany feliz, [facility] 08/07/2023 10:27:35 09/15/2024 text/html Back PainReporte d bypatient.Location :pain radiating to the buttocks;pain radiating to the legs Quality:tingling Severity:worsening Duration:acute; chronic Onset/Timing:Start ed in july. Context:prior back problems Aggravating Factors:movement/p ositioning Associated Symptoms:no fever; no weak limbs; no numbness of the legs/feet; no incontinence; no shortness of breath Here for PE visit. Reviewed chronic medications and medical problems. Discussed screening guidelines as well as goals for fitness and weight management.Cut out red-bull, lost weight, and is being laid of with a package, mentally doing well.Notices rectal lump that gets irritated, he has had it for years and has never brought it up.Also has concern regarding recurrence regarding toe nail fungus in left big. Li Colindres MD [address] [facility] [address], [place], [address], [facility] 09/15/2024 09:44:41
== END 2024-09-23 10:24 | disposition home or self-care (01) ==
LOC: HO.HGS 09:46
PROVIDERS: PCP Internal Medicine; Visit Provider Surgery
DX: L72.9 Follicular cyst of the skin and subcutaneous tissue, unspecified (principal)
CPT/HCPCS: 99203

== ENCOUNTER → 2024-09-23 09:46 | Outpatient (BNVA) | payer OTHER, SELFPAY | PROVIDERS: PCP Internal Medicine; Visit Provider Surgery ==

== ENCOUNTER 2024-10-21 09:35 | Outpatient (REF) | payer OTHER, SELFPAY | END 2024-10-21 09:36 | disposition home or self-care (01) | LOC: HO.LNP 09:35 | PROVIDERS: PCP Internal Medicine; Visit Provider Surgery | DX: L72.9 Follicular cyst of the skin and subcutaneous tissue, unspecified (principal) | CPT/HCPCS: 11402; 88304 ==

== ENCOUNTER 2024-10-21 09:35 | Outpatient (AMB) | payer OTHER, SELFPAY ==
--- NOTE | 2024-10-21 10:00 | MHC.OFFVIS ---
Vital Signs 10/21/24 10:01 Height 5 ft 10 in Weight 192 lb BMI 27.5 BP 130/61 Blood Pressure Location Rt brachial Position Sitting Pulse 63 Intake Visit Reasons: follicular cyst skin excision Intake Note: Patient here for excision of cyst on Rt buttock. 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 [facility] Medical History Cyst of buttocks Pilonidal cyst Onychomycosis Family History Mother Skin cancer Social History Alcohol intake: current Alcohol intake frequency: holidays/special occasions only Patient Tobacco Use Status: Never used Tobacco Physical Exam Vital Signs: Last Vital Signs Pulse 63 10/21/24 10:01 BP 130/61 10/21/24 10:01 BMI result Body Mass Index 27.5 Office Procedures Excision Details: He was in prone position. The area of the cyst on the right buttock was prepped and draped. Lidocaine 1% was used for local anesthesia. I made an elliptical incision in the skin overlying the cystic induration using blade 15. This was carried down through the full-thickness of the skin and subcutaneous fat to excise this entire indurated area. This was sent as a specimen. This measured about 2 cm in diameter I then closed the incision with full-thickness nylon 3-0 simple interrupted sutures. Dressings were applied. The procedure was completed. He tolerated the procedure well. There were no immediate complications. There was minimal blood loss. 59077-gjkhw/arms/legs 1.1-2cm Procedure code (CPT) selection complete Assessment & Plan Assessment & Plan (1) Cyst of buttocks: Code(s): L72.9 - Follicular cyst of the skin and subcutaneous tissue, unspecified Category: Medical Plan: Excision was done under local anesthesia. He tolerated the procedure well. He was given wound care instructions. I will see him in the office for removal sutures in about 2 weeks Orders: Orders Surgical Today L72.9 - Follicular cyst of the skin and subcutaneous tissue, unspecified Coding Level of Care Code Procedure Only Diagnoses Cyst of buttocks L72.9 CPT Codes Trunk/Arms/Legs - CPT: 49175-pwhgm/arms/legs 1.1-2cm ([id number])
[2024-10-21 10:01] VITALS: BP 130/61; PULSE 63; BMI 27.5
--- OUTSIDE RECORDS SUMMARY | 2024-10-21 10:33 | XMS_ITS | Data Portability ---
Author Organization [facility], Main Office Address [address] [place] [address] [place] [id number] Care Team Providers Care Roll Weigher Name Role Phone LI COLINDRES Primary Care Provider Assessment No assessment recorded. Plan of Treatment Reminders Order Date Submit Date Provider Last Modified By Organization Details Last Modified Time Details Appointments telehe alth20 2024 08:30A M iL Colindres MD Not available Not available Not available Lab lipid panel, serum 2024 025 [facility], [address] [place], [address], 09/16/2024 06:14:53 CMP, serum or plasma 2024 025 [facility] (Centralized Electronic Ordering - All Locations), Patient Can Go To The Location Of Their Choice, [id number] 09/16/2024 06:14:52 unlist ed lab - syphil is Ab reflex RPR quant 2023 024 [email or web address] [facility], [address] [place], [address], 08/20/2023 11:04:40 Hepati tis C IgG Ab, qual, serum 2023 024 [email or web address] [facility], [address] [place], [address], 08/20/2023 11:04:40 HBsAg (hepat itis B surfac e Ag), EIA, serum 2023 024 [email or web address] [facility], [address], [place], [address], 08/20/2023 11:04:40 Hepati tis B virus core Ab, qual immuno assay, serum or plasma 2023 024 [email or web address] [facility], [address], [place], [address], 08/20/2023 11:04:40 CT + NG RNA, PCR, unspec ified specim en 2023 024 [email or web address] [facility], [address], [place], [address], 08/20/2023 11:04:40 HIV 1 + 2, meanin gful use set 2023 024 [email or web address] [facility], [address], [place], [address], 08/20/2023 11:04:40 lipid panel, serum 2023 024 [email or web address] [facility], [address], [address], [place], [address], 08/06/2023 11:50:22 CBC w/ auto diff 2023 024 [facility] [facility], [address], [address], [place], [address], 11/05/2023 14:07:30 CMP, serum or plasma 2023 024 [place] [facility], [address], [address], [place], [address], 11/05/2023 14:07:29 TSH, ultra- sensit abner, serum 2023 024 [facility] (Centralized Electronic Ordering - All Locations), Patient Can Go To The Location Of Their Choice, [id number] 11/05/2023 14:07:33 magnes ium, serum or plasma 2023 024 [facility] (Centralized Electronic Ordering - All Locations), Patient Can Go To The Location Of Their Choice, [id number] 11/05/2023 14:07:33 RPR (rapid plasma reagin ), titer, serum 2021 [facility], [address], [address], [place], [address], 11/30/2021 11:11:43 HIV 1+2 AB + HIV 1 p24 Ag, qualit ative immuno assay, serum 2021 022 [place] [facility], [address], [address], [place], [address], 11/30/2021 11:11:45 HBsAg (hepat itis B surfac e Ag), serum 2021 [facility] [facility], [address], [address], [place], [address], 11/30/2021 11:11:45 hbcab (hepat itis B core Ab) igm, serum 2021 022 [place] [facility], [address], [address], [place], [address], 11/30/2021 11:11:44 CT + NG DNA, PCR, urine 2021 [facility] [facility], [address], [address], [place], [address], 11/30/2021 11:11:46 hepati tis C virus Ab, serum 2021 022 [facility] [facility], [address], [address], [place], [address], 11/30/2021 11:11:44 lipid panel, serum 2021 022 [email or web address] [facility], [address], [address], [place], [address], 12/07/2021 16:41:23 CBC w/ auto diff 2021 [facility] [facility], [address], [address], [place], [address], 11/30/2021 11:11:45 TSH, serum or plasma 2021 022 [place] [facility], [address], [address], [place], [address], 11/30/2021 11:11:44 CMP, serum or plasma 2021 [place] [facility], [address], [address], [place], [address], 11/30/2021 11:11:44 Referral physic al therap ist referr al - Please see for LBP 2024 025 [email or web address] Not available 09/15/2024 09:45:18 physic al therap ist referr al - Please see for neck pain 2023 024 [email or web address] Not available 01/26/2024 11:18:47 physic al therap ist referr al - Please see for neck pain/ should er blade on left side 2021 022 [email or web address] Not available 11/30/2021 11:41:09 Procedures None record ed. Surgeries None record ed. Imaging US, buttoc k - cystic lesion right glutea l cleft. 2024 025 In-Office Order, Internal Use Only DO Not Attach Compendium DO Not Attach Compendium, Do Not Delete/merge, [id number] 09/20/2024 07:59:44 XR, cervic al spine 2023 024 [email or web address] [facility], [address] , [place], [address], 08/13/2023 11:42:21 XR, scapul a 2023 024 [email or web address] [facility], [address] [place], [address], 08/13/2023 11:42:21 electr ocardi ogram 2023 024 [email or web address] In-Office Order, Internal Use Only DO Not Attach Compendium DO Not Attach Compendium, Do Not Delete/merge, [id number] 07/30/2023 11:51:50 XR, chest, 2 view 2023 024 [email or web address] In-Office Order, Internal Use Only DO Not Attach Compendium DO Not Attach Compendium, Do Not Delete/merge, [id number] 08/13/2023 11:42:21 XR, cervic al spine 2021 022 [facility], [address] [place], [address], 11/30/2021 11:41:09 Medication Orders meloxi cam 15 mg tablet 2024 025 [place] [id number], [address] [place], [address], 09/15/2024 09:41:31 meloxi cam 15 mg tablet 2021 022 [email or web address] [id number], [address] [place], [address], 09/15/2024 09:00:58 cyclob enzapr ine 10 mg tablet 2021 022 [email or web address] [id number], [address] [place], [address], 07/30/2023 11:14:46 Patient TargetsNo targets recorded. Patient Instructions Encounter Date Encounter Id Patient Instructions Last Modified By Organization Details Last Modified Time 11/30/2021 [id number] neck: exercises [email or web address] Not available 11/30/2021 11:20:00 healthy upper back: exercises [email or web address] Not available 11/30/2021 11:20:00 Well Visit, Ages 18 to 65: Care Instructions [email or web address] Not available 11/30/2021 11:11:34 When You Want to Lose Weight: Care Instructions [email or web address] Not available 11/30/2021 11:11:34 07/30/2023 [id number] neck: exercises [email or web address] Not available 07/30/2023 11:28:42 healthy upper back: exercises [email or web address] Not available 07/30/2023 11:28:43 Well Visit, Ages 18 to 65: Care Instructions [email or web address] Not available 07/30/2023 11:28:42 When You Want to Lose Weight: Care Instructions [email or web address] Not available 07/30/2023 11:28:43 09/15/2024 [id number] low back pain: exercises [email or web address] Not available 09/15/2024 09:41:23 toenail fungus: care instructions [email or web address] Not available 09/15/2024 09:41:23 Reason for Referral Physical Therapist Referral for Neck pain Please see for neck pain/ shoulder blade on left side Referring Physician: Li Colindres [facility], Encounter Date: 11/30/2021 Physical Therapist Referral for Neck pain Please see for neck pain Referring Physician: Li Colindres [facility], Encounter Date: 07/30/2023 Physical Therapist Referral for Chronic low back pain Please see for LBP Referring Physician: Li Colindres [facility] Sam, Encounter Date: 09/15/2024 Results Created Date Observation Date Name Description Value Unit Range Abnormal Flag Note LastModifiedBy Organization Detail LastModifiedTime 11/03/19 24 11/04/2023 CMP14 (REFL EX HGB A1C) glucose 96 mg/dL 70-99 Not Available [facility] ([facility]) [address] [facility], [place], [address], 11/05/2023 14:07:29 11/03/19 24 11/04/2023 CMP14 (REFL EX HGB A1C) BUN 8 mg/dL 6-20 Not Available [facility] ([facility]) [address] [place], [address], 11/05/2023 14:07:29 11/03/19 24 11/04/2023 CMP14 (REFL EX HGB A1C) creatinine 0.74 mg/dL 0.76-1 .27 below low normal Not Available [facility] ([facility]) [address] [facility], [place], [address], 11/05/2023 14:07:29 11/03/19 24 11/04/2023 CMP14 (REFL EX HGB A1C) eGFR 119 mL/mi n/1.7 3 >59 Not Available [facility] ([facility]) [address] [place], [address], 11/05/2023 14:07:29 11/03/19 24 11/04/2023 CMP14 (REFL EX HGB A1C) BUN/creatini ne ratio 11 9-20 Not Available [facility] ([facility]) [address] [place], [address], 11/05/2023 14:07:29 11/03/19 24 11/04/2023 CMP14 (REFL EX HGB A1C) sodium 143 mmol/ L 134-14 4 Not Available [facility] ([facility]) [address] [place], [address], 11/05/2023 14:07:29 11/03/19 24 11/04/2023 CMP14 (REFL EX HGB A1C) potassium 4.6 mmol/ L 3.5-5. 2 Not Available [facility] ([facility]) [address] [place], [address], 11/05/2023 14:07:29 11/03/19 24 11/04/2023 CMP14 (REFL EX HGB A1C) chloride 104 mmol/ L 96-106 Not Available [facility] ([facility]) [address] [place], [address], 11/05/2023 14:07:29 11/03/19 24 11/04/2023 CMP14 (REFL EX HGB A1C) carbon dioxide, total 24 mmol/ L 20- Not Available [facility] ([facility]) [address] [place], [address], 11/05/2023 14:07:29 11/03/19 24 11/04/2023 CMP14 (REFL EX HGB A1C) calcium 9.6 mg/dL 8.7-10 .2 Not Available [facility] ([facility]) [address] [place], [address], 11/05/2023 14:07:29 11/03/19 24 11/04/2023 CMP14 (REFL EX HGB A1C) protein, total 6.9 g/dL 6.0-8. 5 Not Available [facility] ([facility]) [address] [place], [address], 11/05/2023 14:07:29 11/03/19 24 11/04/2023 CMP14 (REFL EX HGB A1C) albumin 4.7 g/dL 4.1-5. 1 Not Available [facility] ([facility]) [address] [place], [address], 11/05/2023 14:07:29 11/03/19 24 11/04/2023 CMP14 (REFL EX HGB A1C) globulin, total 2.2 g/dL 1.5-4. 5 Not Available [facility] ([facility]) [address] [place], [address], 11/05/2023 14:07:29 11/03/19 24 11/04/2023 CMP14 (REFL EX HGB A1C) bilirubin, total 0.4 mg/dL 0.0-1. 2 Not Available [facility] ([facility]) [address] [place], [address], 11/05/2023 14:07:29 11/03/19 24 11/04/2023 CMP14 (REFL EX HGB A1C) alkaline phosphatase 74 IU/L 44-121 Not Available [facility]) [address] [facility], [place], [address], 11/05/2023 14:07:29 11/03/19 24 11/04/2023 CMP14 (REFL EX HGB A1C) AST (SGOT) 22 IU/L 0-40 Not Available [facility] ([facility]) [address] [facility], [place], [address], 11/05/2023 14:07:29 11/03/19 24 11/04/2023 CMP14 (REFL EX HGB A1C) ALT (SGPT) 34 IU/L 0-44 Not Available [facility] ([facility]) [address] [facility], [place], [address], 11/05/2023 14:07:29 11/03/19 24 11/04/2023 CBC WITH DIFFE RENTI AL/PL ATELE T WBC 6.9 x10e3 /uL 3.4-10 .8 Not Available [facility] ([facility]) [address] [facility], [place], [address], 11/05/2023 14:07:30 11/03/19 24 11/04/2023 CBC WITH DIFFE RENTI AL/PL ATELE T RBC 5.00 x10e6 /uL 4.14-5 .80 Not Available [facility] ([facility]) [address] [facility], [place], [address], 11/05/2023 14:07:30 11/03/19 24 11/04/2023 CBC WITH DIFFE RENTI AL/PL ATELE T hemoglobin 15.9 g/dL 13.0-1 7.7 Not Available [facility] ([facility]) [address] [place], [address], 11/05/2023 14:07:30 11/03/19 24 11/04/2023 CBC WITH DIFFE RENTI AL/PL ATELE T hematocrit 47.7 % 37.5-5 1.0 Not Available [facility] ([facility]) [address] [facility], [place], [address], 11/05/2023 14:07:30 11/03/19 24 11/04/2023 CBC WITH DIFFE RENTI AL/PL ATELE T MCV 95 fL 79-97 Not Available [facility] ([facility]) [address] [facility], [place], [address], 11/05/2023 14:07:30 11/03/19 24 11/04/2023 CBC WITH DIFFE RENTI AL/PL ATELE T MCH 31.8 pg 26.6-3 3.0 Not Available [facility] ([facility]) [address] [facility], [place], [address], 11/05/2023 14:07:30 11/03/19 24 11/04/2023 CBC WITH DIFFE RENTI AL/PL ATELE T MCHC 33.3 g/dL 31.5-3 5.7 Not Available [facility] ([facility]) [address] [facility], [place], [address], 11/05/2023 14:07:30 11/03/19 24 11/04/2023 CBC WITH DIFFE RENTI AL/PL ATELE T RDW 12.7 % 11.6-1 5.4 Not Available [facility] ([facility]) [address] [facility], [place], [address], 11/05/2023 14:07:30 11/03/19 24 11/04/2023 CBC WITH DIFFE RENTI AL/PL ATELE T platelets 262 x10e3 /uL 150-45 0 Not Available [facility] ([facility]) [address] [place], [address], 11/05/2023 14:07:30 11/03/19 24 11/04/2023 CBC WITH DIFFE RENTI AL/PL ATELE T neutrophils 69 % not estab. Not Available [facility] ([facility]) [address] [place], [address], 11/05/2023 14:07:30 11/03/19 24 11/04/2023 CBC WITH DIFFE RENTI AL/PL ATELE T lymphs 19 % not estab. Not Available [facility] ([facility]) [address] [facility], [place], [address], 11/05/2023 14:07:30 11/03/19 24 11/04/2023 CBC WITH DIFFE RENTI AL/PL ATELE T monocytes 9 % not estab. Not Available [facility] ([facility]) [address] [facility], [place], [address], 11/05/2023 14:07:30 11/03/19 24 11/04/2023 CBC WITH DIFFE RENTI AL/PL ATELE T eos 2 % not estab. Not Available [facility] ([facility]) [address] [facility], [place], [address], 11/05/2023 14:07:30 11/03/19 24 11/04/2023 CBC WITH DIFFE RENTI AL/PL ATELE T basos 1 % not estab. Not Available [facility] ([facility]) [address] [facility], [place], [address], 11/05/2023 14:07:30 11/03/19 24 11/04/2023 CBC WITH DIFFE RENTI AL/PL ATELE T immature cells BUSINESS OBJECTS CONSULTANT Not Available [facility] ([facility]) [address] [facility], [place], [address], 11/05/2023 14:07:30 11/03/19 24 11/04/2023 CBC WITH DIFFE RENTI AL/PL ATELE T neutrophils (absolute) 4.8 x10e3 /uL 1.4-7. 0 Not Available [facility] ([facility]) [address] [facility], [place], [address], 11/05/2023 14:07:30 11/03/19 24 11/04/2023 CBC WITH DIFFE RENTI AL/PL ATELE T lymphs (absolute) 1.3 x10e3 /uL 0.7-3. 1 Not Available [facility] ([facility]) [address] [facility], [place], [address], 11/05/2023 14:07:30 11/03/19 24 11/04/2023 CBC WITH DIFFE RENTI AL/PL ATELE T monocytes(ab solute) 0.6 x10e3 /uL 0.1-0. 9 Not Available [facility] ([facility]) [address] [facility], [place], [address], 11/05/2023 14:07:30 11/03/19 24 11/04/2023 CBC WITH DIFFE RENTI AL/PL ATELE T eos (absolute) 0.1 x10e3 /uL 0.0-0. 4 Not Available [facility] ([facility]) [address] [facility], [place], [address], 11/05/2023 14:07:30 11/03/19 24 11/04/2023 CBC WITH DIFFE RENTI AL/PL ATELE T baso (absolute) 0.1 x10e3 /uL 0.0-0. 2 Not Available [facility] ([facility]) [address] [facility], [place], [address], 11/05/2023 14:07:30 11/03/19 24 11/04/2023 CBC WITH DIFFE RENTI AL/PL ATELE T immature granulocytes 0 % not estab. Not Available [facility] ([facility]) [address] [place], [address], 11/05/2023 14:07:30 11/03/19 24 11/04/2023 CBC WITH DIFFE RENTI AL/PL ATELE T immature grans (abs) 0.0 x10e3 /uL 0.0-0. 1 Not Available [facility] ([facility]) [address] [place], [address], 11/05/2023 14:07:30 11/03/19 24 11/04/2023 CBC WITH DIFFE RENTI AL/PL ATELE T NRBC BUSINESS OBJECTS CONSULTANT Not Available [facility] ([facility]) [address] [facility], [place], [address], 11/05/2023 14:07:30 11/03/19 24 11/04/2023 CBC WITH DIFFE RENTI AL/PL ATELE T hematology comments: BUSINESS OBJECTS CONSULTANT Not Available [facility] ([facility]) [address] [place], [address], 11/05/2023 14:07:30 11/03/19 24 11/04/2023 LIPID PANEL cholesterol, total 200 mg/dL 100-19 9 above high normal Not Available [facility] ([facility]) [address] [place], [address], 11/05/2023 14:07:30 11/03/19 24 11/04/2023 LIPID PANEL triglyceride s 161 mg/dL 0-149 above high normal Not Available [facility] ([facility]) [address] [place], [address], 11/05/2023 14:07:30 11/03/19 24 11/04/2023 LIPID PANEL HDL cholesterol 42 mg/dL >39 Not Available [facility] ([facility]) [address] [place], [address], 11/05/2023 14:07:30 11/03/19 24 11/04/2023 LIPID PANEL VLDL cholesterol elen 29 mg/dL 5-40 Not Available [facility] ([facility]) [address] [place], [address], 11/05/2023 14:07:30 11/03/19 24 11/04/2023 LIPID PANEL LDL chol calc (rust) 129 mg/dL 0-99 above high normal Not Available [facility] ([facility]) [address] [facility] [place], [address], 11/05/2023 14:07:30 11/03/19 24 11/04/2023 LIPID PANEL LDL calc comment: BUSINESS OBJECTS CONSULTANT Not Available [facility] ([facility]) [address] [facility], [place], [address], 11/05/2023 14:07:30 11/03/19 24 11/04/2023 CHLAM YDIA/ GC AMPLI FICAT ION chlamydia trachomatis, MATTHEW Negati ve negati ve Not Available [facility] ([facility]) [address] [facility], [place], [address], 11/05/2023 14:07:31 11/03/19 24 11/04/2023 CHLAM YDIA/ GC AMPLI FICAT ION neisseria gonorrhoeae, MATTHEW Negati ve negati ve Not Available [facility] ([facility]) [address] [facility], [place], [address], 11/05/2023 14:07:31 11/03/19 24 11/04/2023 HCV ANTIB LUCAS RFX TO QUANT PCR HCV Ab Non Reacti ve non reacti ve Not Available [facility] ([facility]) [address] [facility], [place], [address], 11/05/2023 14:07:31 11/03/19 24 11/04/2023 HCV ANTIB LUCAS RFX TO QUANT PCR interpretati on: Commen t Not infec amelia with HCV unles s early or acute infec tion is suspe cted (whic h may be delay ed in an immun ocomp romis ed indiv idual ), or other evide nce exist s to indic ate HCV infec tion. Not Available [facility] ([facility]) [address] [facility], [place], [address], 11/05/2023 14:07:31 11/03/19 24 11/04/2023 HIV AB/P2 4 AG WITH REFLE X HIV Ab/P24 Ag screen Non Reacti ve non reacti ve HIV Negat abner HIV-1 /HIV- 2 antib odies and HIV-1 p24 antig en were NOT detec amelia. There is no labor atory evide nce of HIV infec tion. Not Available [facility] ([facility]) [address] [facility], [place], [address], 11/05/2023 14:07:32 11/03/19 24 11/05/2023 SYPHI LIS AB REFLE X RPR QUANT donor syphilis (T pallidum) Non Reacti ve non reacti ve Test perfo rmed with [facility] (Listn)t er PK TP kit. Not Available [facility] ([facility]) [address] [facility], [place], [address], 11/05/2023 14:07:32 11/03/19 24 11/04/2023 TSH RFX ON ABNOR MAL TO FREE T4 TSH 1.730 uIU/m L 0.450- 4.500 Not Available [facility] ([facility]) [address] [facility], [place], [address], 11/05/2023 14:07:33 11/03/19 24 11/04/2023 MAGNE SIUM magnesium 2.1 mg/dL 1.6-2. 3 Not Available [facility] ([facility]) [address] [place], [address], 11/05/2023 14:07:33 11/03/19 24 11/04/2023 HBSAG SCREE N HBsAg screen Negati ve negati ve Not Available [facility] ([facility]) [address] [place], [address], 11/05/2023 14:07:34 11/03/19 24 11/04/2023 HEP B CORE AB, TOT hep B core Ab, tot Negati ve negati ve Not Available [facility] ([facility]) [address] [place], [address], 11/05/2023 14:07:34 09/16/19 25 09/16/2024 CMP14 (REFL EX HGB A1C) glucose 98 mg/dL 70-99 normal Not Available [facility] ([facility]) [address] [place], [address], 09/16/2024 06:14:52 09/16/19 25 09/16/2024 CMP14 (REFL EX HGB A1C) BUN 13 mg/dL 6-20 normal Not Available [facility] ([facility]) [address] [place], [address], 09/16/2024 06:14:52 09/16/19 25 09/16/2024 CMP14 (REFL EX HGB A1C) creatinine 0.85 mg/dL 0.76-1 .27 normal Not Available [facility] ([facility]) [address] [place], [address], 09/16/2024 06:14:52 09/16/19 25 09/16/2024 CMP14 (REFL EX HGB A1C) eGFR 113 mL/mi n/1.7 3 >59 normal Not Available [facility] ([facility]) [address] [place], [address], 09/16/2024 06:14:52 09/16/19 25 09/16/2024 CMP14 (REFL EX HGB A1C) BUN/creatini ne ratio 15 9-20 normal Not Available [facility] ([facility]) [address] [place], [address], 09/16/2024 06:14:52 09/16/19 25 09/16/2024 CMP14 (REFL EX HGB A1C) sodium 143 mmol/ L 134-14 4 normal Not Available [facility] ([facility]) [address] [place], [address], 09/16/2024 06:14:52 09/16/19 25 09/16/2024 CMP14 (REFL EX HGB A1C) potassium 4.4 mmol/ L 3.5-5. 2 normal Not Available [facility] ([facility]) [address] [place], [address], 09/16/2024 06:14:52 09/16/19 25 09/16/2024 CMP14 (REFL EX HGB A1C) chloride 102 mmol/ L 96-106 normal Not Available [facility] ([facility]) [address] [place], [address], 09/16/2024 06:14:52 09/16/19 25 09/16/2024 CMP14 (REFL EX HGB A1C) carbon dioxide, total 21 mmol/ L 20-29 normal Not Available [facility] ([facility]) [address] [place], [address], 09/16/2024 06:14:52 09/16/1909/16/2024 CMP14 (REFL EX HGB A1C) calcium 10.0 mg/dL 8.7-10 .2 normal Not Available [facility] ([facility]) [address] [place], [address], 09/16/2024 06:14:52 09/16/1909/16/2024 CMP14 (REFL EX HGB A1C) protein, total 7.2 g/dL 6.0-8. 5 normal Not Available [facility] ([facility]) [address] [place], [address], 09/16/2024 06:14:52 09/16/19 25 09/16/2024 CMP14 (REFL EX HGB A1C) albumin 5.2 g/dL 4.1-5. 1 above high normal Not Available [facility] ([facility]) [address] [place], [address], 09/16/2024 06:14:52 09/16/19 25 09/16/2024 CMP14 (REFL EX HGB A1C) globulin, total 2.0 g/dL 1.5-4. 5 Not Available [facility] ([facility]) [address] [facility] [place], [address], 09/16/2024 06:14:52 09/16/19 25 09/16/2024 CMP14 (REFL EX HGB A1C) bilirubin, total 0.4 mg/dL 0.0-1. 2 normal Not Available [facility] ([facility]) [address] [facility] [place], [address], 09/16/2024 06:14:52 09/16/19 25 09/16/2024 CMP14 (REFL EX HGB A1C) alkaline phosphatase 72 IU/L 44-121 normal Not Available [facility] ([facility]) [address] [facility] [place], [address], 09/16/2024 06:14:52 09/16/19 25 09/16/2024 CMP14 (REFL EX HGB A1C) AST (SGOT) 17 IU/L 0-40 normal Not Available [facility] ([facility]) [address] [facility] [place], [address], 09/16/2024 06:14:52 09/16/1909/16/2024 CMP14 (REFL EX HGB A1C) ALT (SGPT) 27 IU/L 0-44 normal Not Available [facility] ([facility]) [address] [place], [address], 09/16/2024 06:14:52 09/16/19 25 09/16/2024 LIPID PANEL cholesterol, total 188 mg/dL 100-19 9 normal Not Available [facility] ([facility]) [address] [place], [address], 09/16/2024 06:14:53 09/16/19 25 09/16/2024 LIPID PANEL triglyceride s 72 mg/dL 0-149 normal Not Available [facility] ([facility]) [address] [place], [address], 09/16/2024 06:14:53 09/16/19 25 09/16/2024 LIPID PANEL HDL cholesterol 44 mg/dL >39 normal Not Available [facility] ([facility]) [address] [facility], [place], [address], 09/16/2024 06:14:53 09/16/19 25 09/16/2024 LIPID PANEL VLDL cholesterol elen 13 mg/dL 5-40 Not Available [facility] ([facility]) [address] [facility], [place], [address], 09/16/2024 06:14:53 09/16/19 25 09/16/2024 LIPID PANEL LDL chol calc (rust) 131 mg/dL 0-99 above high normal Not Available [facility] ([facility]) [address] [facility], [place], [address], 09/16/2024 06:14:53 09/16/19 25 09/16/2024 LIPID PANEL LDL calc comment: BUSINESS OBJECTS CONSULTANT Not Available [facility] ([facility]) [address] [facility], [place], [address], 09/16/2024 06:14:53 07/30/19 24 07/30/2023 elect rocar diogr am No observ ation record ed. [email or web address] In-Office Order Internal Use Only DO Not Attach Compendium DO Not Attach Compendium, Do Not Delete/merge, [id number] 07/30/2023 16:29:15 07/30/19 elect rocar diogr am No observ ation record ed. [email or web address] In-Office Order Internal Use Only DO Not Attach Compendium DO Not Attach Compendium, Do Not Delete/merge, [id number] 07/30/2023 12:26:54 10/29/19 24 10/29/2023 XR, scapu la Scapul a Left 2 views Reason : pain in should er COMPAR RADHA: None. FINDIN GS: No fractu res or bone lesion s. No arthri tic change s. Normal soft tissue s. IMPRES DAVID: Normal . WSN: [id number] Orderi ng Physic aide: Kinga Colindres Dictat ed By: Ladonna Prince MD Dictat ed Date/T gunnar: 12:51 p Review ed By: Kathleen king MD, Ladonna mercer Signed By: Ladonna Prince MD Signed Date/T gunnar: 12:51 pm Transc ribed By: LIANNE Transc ribed Date/T gunnar: 12:51 pm Patien t Class: Outpat ient [facility] (Outpt Imaging) [address], [place], [address], 10/30/2023 10:26:29 10/29/19 24 10/29/2023 XR, scapu la No observ ation record ed. [facility] [address] [facility], [place], [address], 10/30/2023 11:51:43 09/21/19 25 09/20/2024 US, pelvi [...] x 1.3 cm. It produc es mild extrusion manager ior acoust ic shadow ing and there is no signif icant financial analyst intern al vascul arity on color Dopple r [...] inclus ion or pilar cyst, althou gh extrusion manager ior acoust ic shadow would be atypic al. A focus of fat necros is could also be consid ered. If the patien t's palpab le findin g increa ses in size or become s progre ssivel y sympto matic, correl ation with MRI could be consid ered. WSN: [id number] Orderi ng Physic aide: Kinga Colindres Dictat ed By: Roddy Frost MD Dictat ed Date/T gunnar: 4:24 pm Review ed By: Roddy Frost MD Signed By: Roddy Frost MD Signed Date/T gunnar: 4:24 pm Transc ribed By: LIANNE Transc ribed Date/T gunnar: 4:07 pm Patien t Class: Outpat ient [facility] (Outpt Imaging) [address] [facility], [place], [address], 09/20/2024 18:58:19 09/21/19 25 09/20/2024 US, butto ck No observ ation record ed. [email or web address] In-Office Order Internal Use Only DO Not Attach Compendium DO Not Attach Compendium, Do Not Delete/merge, [id number] 09/23/2024 11:09:25 Result Notes None recorded. Problems Name Problem SNOMED Code Status Onset Date Resolution Date Notes Provider Name and Address Organization Details Recorded Time Overweight 115296997 Active 022 Li Colindres MD [address] [facility] [address], [place], [address], [facility] 2 11:11:00 Problem Notes None recorded. Procedures Surgical History Date Name Laterality Status Provider Name and Address Organization Details Recorded Time removal of pilonidal cyst completed Anum Medina MA [facility] 11/30/2021 10:31:52 extraction of wisdom tooth completed Anum Medina MA [facility] 11/30/2021 10:31:59 Imaging Results None recorded. Procedure Notes None recorded. Medical Equipment None [...] Updated DateTime 4 182.88 cm 27.3 kg/m2 06261.1 7 g 77 /min 97 % 97 % 97.9 [degF] 111 mm[Hg] 70 mm[Hg] Arianne Arboleda [facility] 4 11:14:22 Date Recorded Body height Body mass index (BMI) Body weight Oxygen saturation Oxygen saturation in Arterial blood by Pulse oximetry Body temperature Heart rate Systolic blood pressure Diastolic blood pressure Provider Name and Address Organization Details Last Updated DateTime 5 182.88 cm 25.6 kg/m2 36460.1 7 g 100 % 100 % 97.7 [degF] 67 /min 110 mm[Hg] 70 mm[Hg] Hansa Velasquez MA [facility] 5 08:59:59 Date Recorded Body height Body mass index (BMI) Body weight Heart rate Oxygen saturation Oxygen saturation in Arterial blood by Pulse oximetry Body temperature Systolic blood pressure Diastolic blood pressure Provider Name and Address Organization Details Last Updated DateTime 182.88 cm 28.4 kg/m2 76120.5 1 g 67 /min 97 % 97 % 98.06 [degF] 120 mm[Hg] 78 mm[Hg] Anum Medina MA [facility] 10:35:07 Social History Question Answer Notes LastModified by Organizat ion Details LastModified Time Tobacco Smoking Status Former Smoker HERMES Rae [facility] 11/30/2021 10:42:28 Is Blood Transfusion Acceptable In [...] 11/30/2021 When Did You Quit Smoking? 11-15yearssin celastcigaret te Quit In 2007 Information not available 11/30/2021 Do You Take Precautions To Prevent Distracted Driving? Yes Information not available 11/30/2021 How Often Do You Need To Have Someone Help You When You Read Instructions, Pamphlets, Or Other Written Material From Your Doctor Or Pharmacy? Never Information not available 11/30/2021 Have You Served In The ? No [email or web address] Information not available 09/15/2024 How Many Children [...] Occasional Only a few times a year [email or web address] Information not available 07/30/2023 Do you or have you ever used smokeless tobacco? Never used smokeless tobacco Information not available 11/30/2021 Are you currently employed? Yes Information not available 11/30/2021 Are you able to walk? YESWOREST Information not available 11/30/2021 Are you able to care for yourself? 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 not available 11/30/2021 What is your [...] Immunizations Vaccine Type Date Status Note Provider Miguelito melendez and Address Organization Details Recorded Time COVID-19, mRNA, LNP-S, PF, 30 mcg/0.3 mL dose 09/20/2020 completed Anum Medina [facility] 11/30/2021 10:29:48 COVID-19, mRNA, LNP-S, PF, 30 mcg/0.3 mL dose 08/30/2020 completed HERMES Rae [facility] 11/30/2021 10:29:49 COVID-19, mRNA, LNP-S, PF, 100 mcg/0.5mL dose or 50 mcg/0.25mL dose 04/27/2021 completed HERMES Alvarez [facility] 07/30/2023 11:14:03 Tdap 10/28/2023 completed Not Available [facility] 09/15/2024 08:49:57 Past Encounters Encounter ID Performer Location Encounter Start Date Encounter Closed Date Diagnosis/Indication Diagnosis SNOMED-CT Code Diagnosis ICD10 Code Diagnosis Note [id number] Li Colindres MD Main Office [address] [facility] [address] [facility] [place] [address] 11/30/2021 10:07:21 11/30/2021 11:41:08 Adult health examination 597553734 Z00.00 Patient was counseled on healthy diet, exercise and nutrition due to Body mass index is 28.4 kg/m? ? ?. Prostate/C olon CA hx?: no fhx, asymptomat ic Vaccines:T dAP: script providedZo ster Rec: not [id number]: not dueInfluen za: not in seaonCovid : 08/30/20, 09/20/20, 04/23/21 Routine labs today, with STI workup Immunizati on status reviewed. Will screen based on risk factors. Regular dental and ophtho care advised as well as seat belt and sunscreen use. Distracted driving discussed. Medication reconciled . Fatigue 08143021 R53.83 Hyperlipidemia 18512459 E78.5 Venereal d isease screening 761033204 Z11.3 Patient ne w to provider [id number] 90217 Z76.89 Administra tion of viral vaccine 11055541 Z23 Body mass index 25-29 - overweight 279369808 E66.3 Z68.25 - Diet and exercise discussed- Encouraged to loose weight.- Avoid starchy and fatty food- Encouraged use of green vegetables and fruits Overweight 769080605 E66 .3 Snoring 95595016 R06.83 Neck pain 10014980 M54.2 Cervicalgi a with radiculopa thy.Risk of sedation with MSK relaxant advised. He is aware not to operate machinery, MV or drink while on meds.Take mobic with food and avoid other NSAIDSent for PT/exercis es provided. Scapulalgia 41932194 M25 .519 [id number] Li Colindres MD Main Office [address] [facility] [address] [facility] [place] [address] 07/30/2023 10:55:33 07/30/2023 11:51:49 Adult health examination 241645720 Z00.00 Patient was counseled on healthy diet, exercise and nutrition due to Body mass index is 27.3 kg/m? ? ?. Prostate/C olon CA hx?: no fhx, asymptomat ic Vaccines:T dAP: script providedZo ster Rec: not [id number]: not dueInfluen za: not in seasonCovi d: Encourage updated vaccine. Routine labs today, with STI workup Immunizati on status reviewed. Will screen based on risk factors. Regular dental and ophtho care advised as well as seat belt and sunscreen use. Distracted driving discussed. Medication reconciled . Fatigue 98518503 R53.83 Hyperlipidemia 70880420 E78.5 Administra tion of viral vaccine 42216550 Z23 Body mass index 25-29 - overweight 394407534 E66.3 Z68.25 - Diet and exercise discussed- Encouraged to loose weight.- Avoid starchy and fatty food- Encouraged use of green vegetables and fruits Overweight 728998246 E66 .3 Snoring 64387956 R06.83 He will work on weight loss first if he continue to snore he will let me know and we can consider having him see sleep med.His mom has TOBI Venereal d isease screening 730604725 Z20.2 Z11.3 Z72.89 Scapulalgia 81493935 M25 .519 Neck pain 57884924 M54.2 Cervicalgi a with radiculopa thy.Radicu lopathy sx improved.M eloxicam and msk relaxant did not help.PT provided some relief, but cut it short due to cost, open to restarting - referral provided.H e did not get x-ray as instructio n.If no improvemen t he will call and can consider physiatry eval. Chest discomfort 1912800 09 R07.89 occurred 2 weeks ago, feels like msk but not reproducib le on palpation. Occurs when he stretches. I suspect this is msk related as it occurs when stretching but will get baseline ECG.ED precaution discussed. Stretching exercises advised.If no improvemen t he was advised to call. [id number] Li Colindres MD Main Office [address] [facility] [address] [facility] [place] [place] [address] 09/15/2024 08:48:23 09/15/2024 09:45:18 Adult health examination 520406140 Z00.00 Patient was counseled on healthy diet, exercise and nutrition due to Body mass index is 25.6 kg/m? ? ?. Prostate/C olon CA hx?: no fhx, asymptomat ic Vaccines:T dAP: 10/28/23Zos ter Rec: not [id number]: not dueInfluen za: not in seasonCovi d: Encourage updated vaccine. Routine labs today Immunizati on status reviewed. Will screen based on risk factors. Regular dental and ophtho care advised as well as seat belt and sunscreen use. Distracted driving discussed. Medication reconciled . Onychomycosis 933510616 B35.1 Will tx after I get lft. He is aware he will need to repeat LFT 6 weeks after I send tx due to hepatic toxicity. Will follow up tele health 7 weeks. Fatigue 05291838 R53.83 Z00.00 Hyperlipidemia 13138646 E78.5 Z00.00 FASTING Chronic low back pain 27 0876881 M54.42 G89.29 with radiculopa thy.Will send Meloxicam aware not to use with other otc nsaid, advised to take with meal and hydration enforced.E ncouraged PTCan consider xray if no improvemen t.If no improvemen t will consider MRI/physia try eval after trial po steroid/ga bapentin/m sk relaxant. Cyst of skin 817662656 L 72.9 No drainage warmth or erythema hard mobile nodular lesion will get US the consider surgeon eval as it is bothering him. No sign of infection or role in abx. Health Concerns Section Related Observation LastModified by Organization Detai ls LastModified Time None Recorded Concern Status LastModified by Organization Details LastModified Time None Recorded Advance Directives Directive None Recorded Payers Insurance Date Sequence Insurance Name Policy Number Policy Bowman Covered Member ID Bowman Member ID Guarantor Name 09/28/2024 1 LEONID [id number] Ruddy Romero [id number] Willie Romero Notes Date Note Type [...] and 1/week 3-4mile walk Li Colindres MD [address], [address], [facility] [place] 11/30/2021 11:36:40 07/30/2023 text/html Angina/Chest PainReported bypatient.Location [...] for fitness and weight management. Brittany feliz, [facility] [place] 08/07/2023 10:27:35 09/15/2024 text/html Back PainReporte d [...] fungus in left big. Li Colindres MD [address] [address], [place], [address], [facility] [place] 09/15/2024 09:44:41
== END 2024-10-21 10:32 | disposition home or self-care (01) ==
LOC: HO.HGS 09:36
PROVIDERS: PCP Internal Medicine; Visit Provider Surgery
DX: L72.0 Epidermal cyst (principal)
CPT/HCPCS: 11402

== ENCOUNTER 2024-11-02 12:29 | Outpatient (AMB) | payer OTHER, SELFPAY ==
--- NOTE | 2024-11-02 12:31 | A.OFFVIS_ITS ---
Vital Signs 11/02/24 12:43 Height 5 ft 10 in Weight 193 lb BMI 27.7 BP 129/71 Blood Pressure Location Rt brachial Position Sitting Pulse 81 Intake Visit Reasons: 2wk s/p follicular cyst skin excision Intake Note: Patient here s/p cyst excision Rt buttock on 10-21-2024. Patient c/o: reports incision site healing well. Denies bleeding, oozing, itch. Avionics Technician Required: No Accompanied by: Self / Same As Patient Allergies No Known Allergies Allergy (Verified 10/21/24 10:00) HPI HPI 2wk s/p follicular cyst skin excision: Details: Doing well, states he wanted to return earlier due to some concern about redness at the area. He denies drainage from the incision site states the 1st day or so he had some bleeding but has been keeping it covered since and has not noticed much if any blood or drainage when he removes the dressings. He states that the area is minimally tender, mostly when he has to sit for periods of time. He denies fever or chills, swelling around the area. [facility], [facility] Medical History Cyst of buttocks Pilonidal cyst Onychomycosis Family History Mother Skin cancer Social History Alcohol intake: current Alcohol intake frequency: holidays/special occasions only Patient Tobacco Use Status: Never used Tobacco Review of Systems Const All systems reviewed & are unremarkable except as noted in HPI and below Physical Exam Vital Signs: Last Vital Signs Pulse 81 11/02/24 12:43 BP 129/71 11/02/24 12:43 BMI result Body Mass Index 27.7 Const General: healthy appearing, comfortable, no acute distress and well developed Orientation/consciousness: patient oriented x3 Resp Effort & Inspection: normal respiratory effort and able to speak in complete sentences Skin Other: Right buttock excision site: [address] mild erythema surrounding excision site, minimally tender. No palpable fluid collection. Excision site intact. Neuro General: patient oriented x3 Assessment & Plan Assessment & Plan (1) History of epidermal inclusion cyst excision: Comment: Right buttock Code(s): Z98.890 - Other specified postprocedural states; Z87.2 - Personal history of diseases of the skin and subcutaneous tissue Category: Surgical (2) Cyst of buttocks: Code(s): L72.9 - Follicular cyst of the skin and subcutaneous tissue, unspecified Category: Medical Plan 38-year-old male s/p excision of cyst on right buttock on 10/21/2024 reports the office for follow-up with some concern of infection of the area. Overall patient is doing well, he returned 2 days earlier than his scheduled appointment due to concern for some redness around the excision site. He has been monitoring her very closely taking pictures everyday. We reviewed these pictures together, which appear to be healing well, following appropriate stages of healing. On exam the excision site appears to be healing well there is mild erythema around the area however there was no palpable fluid collection, it is minimally tender and does not warm. At this point I am not concerned for infection. The 3 sutures were removed in office, patient tolerated this well. There was minimal bloody discharge when the sutures were removed so I used a bandage to dress the wound. I recommended that the patient leave this in place for 1 day and assess for any further drainage. If there was minimal drainage instructed the patient that he no longer needs to keep this dressed. I recommended that he keep this area clean and dry, he is okay to shower but recommended no submerging for the next 2 weeks. We discussed follow-up, I did not recommend continuing follow-up, patient can follow up as needed with any concerns in the future. Coding Level of Care Code Est Pt Level 3 (11627) Diagnoses History of epidermal inclusion cyst excision Z98.890; Z87.2 Cyst of buttocks L72.9 Time Spent (min) 30
[2024-11-02 12:43] VITALS: BP 129/71; PULSE 81; BMI 27.7
--- OUTSIDE RECORDS SUMMARY | 2024-11-02 14:00 | XMS_ITS | Data Portability ---
Author Organization [facility], Main Office Address [address] [address] Care Team Providers Care Sub Master Name Role Phone LI COLINDRES Primary Care Provider Assessment Encounter Date Assessment Date Assessment LastModified by Organization Details LastModified Time 10/25/2024 10/25/2024 This service was provided using telemedicine. Patient consented to video & audio visit Patient was located at home in the [facility]. Provider was located in the office. No other persons participated in the telemedicine visit except for the patient unless otherwise indicated here. Total time of visit was 15 minutes. Onychomycosis and Athlete's Foot: -Continue terbinafine as prescribed. -Obtain LFTs as soon as possible to monitor for potential hepatotoxicity. -Educate the patient on preventive measures, including washing items in hot water, drying on high heat, avoiding moist environments, and cleaning areas that may harbor fungal spores. -Recommend yvkt-fui-uupihl r athlete's foot powder to prevent recurrence. -Once nearing the end of terbinafine treatment, suggest using Penlac (ciclopirox) nail lacquer and iuon-vpc-ehiuze r Lamisil (terbinafine) to prevent further fungal infections. Follow-Up: -Schedule a follow-up appointment in 6 weeks. The patient may cancel if symptoms resolve and he is satisfied with the outcome. Physical Therapy: -Encourage the patient to start physical therapy for his lower back once he has sufficiently recovered from his recent surgical procedure. [email or web address] Not available 10/25/2024 08:58:20 Plan of Treatment Reminders Order Date Submit Date Provider Last Modified By Organization Details Last Modified Time Details Appointments None record ed. Lab hepati c functi on panel, serum [address] [facility] (Centralized Electronic Ordering - All Locations), Patient Can Go To The Location Of Their Choice, 5 08:57:41 lipid panel, serum 2024 025 [facility], [address], [place], [address], 5 06:14:53 CMP, serum or plasma 2024 025 [facility] (Centralized Electronic Ordering - All Locations), Patient Can Go To The Location Of Their Choice, 5 06:14:52 unlist ed lab - syphil is Ab reflex RPR quant 2023 024 [email or web address] [facility], [address], [place], [address], 4 11:04:40 Hepati tis C IgG Ab, qual, serum 2023 024 [email or web address] [facility], [address], [place], [address], 4 11:04:40 HBsAg (hepat itis B surfac e Ag), EIA, serum 2023 024 [email or web address] [facility], [address], [place], [address], 4 11:04:40 Hepati tis B virus core Ab, qual immuno assay, serum or plasma 2023 024 [email or web address] [facility], [address], [place], [address], 4 11:04:40 CT + NG RNA, PCR, unspec ified specim en 2023 024 [email or web address] [facility], [address], [place], [address], 4 11:04:40 HIV 1 + 2, meanin gful use set 2023 024 [email or web address] [facility], [address], [place], [address], 4 11:04:40 lipid panel, serum 2023 024 [email or web address] [facility], [address], [address], [place], [place], [address], 4 11:50:22 CBC w/ auto diff 2023 024 [place] [facility], [address], [address], [place], [address], 14:07:30 CMP, serum or plasma 2023 024 [place] [facility], [address], [address], [place], [address], 14:07:29 TSH, ultra- sensit abner, serum 2023 024 [place] [facility] (Centralized Electronic Ordering - All Locations), Patient Can Go To The Location Of Their Choice, [id number] 14:07:33 magnes ium, serum or plasma 2023 024 [place] [facility] (Centralized Electronic Ordering - All Locations), Patient Can Go To The Location Of Their Choice, [address] 14:07:33 RPR (rapid plasma reagin ), titer, serum 2021 022 [place] [facility], [address], [address], [place], [address], 2 11:11:43 HIV 1+2 AB + HIV 1 p24 Ag, qualit ative immuno assay, serum 2021 022 [place] [facility], [address], [address], [place], [address], 11:11:45 HBsAg (hepat itis B surfac e Ag), serum 2021 [place] [facility], [address], [address], [place], [place], [address], 11:11:45 hbcab (hepat itis B core Ab) igm, serum 2021 [place] [facility], [address], [address], [place], [address], 11:11:44 CT + NG DNA, PCR, urine 2021 [place] [facility], [address], [address], [place], [address], 11:11:46 hepati tis C virus Ab, serum 2021 [place] [facility], [address], [address], [place], [address], 11:11:44 lipid panel, serum 2021 [email or web address] [facility], [address], [address], [place], [address], 16:41:23 CBC w/ auto diff 2021 [place] [facility], [address], [address], [place], [address], 11:11:45 TSH, serum or plasma 2021 [place] [facility], [address], [address], [place], [address], 11:11:44 CMP, serum or plasma 2021 [place] [facility], [address], [address] , [place], [address], 2 11:11:44 Referral physic al therap ist referr al - Please see for LBP 2024 025 [email or web address] Not available 5 09:45:18 physic al therap ist referr al - Please see for neck pain 2023 024 [email or web address] Not available 4 11:18:47 physic al therap ist referr al - Please see for neck pain/ should er blade on left side 2021 022 Not available 2 11:41:09 Procedures None record ed. Surgeries None record ed. Imaging US, buttoc k - cystic lesion right glutea l cleft. 2024 025 [email or web address] In-Office Order, Internal Use Only DO Not Attach Compendium DO Not Attach Compendium, Do Not Delete/merge, [id number] 5 07:59:44 XR, cervic al spine 2023 024 [email or web address] [facility], [address] [place] [address], [address], 4 11:42:21 XR, scapul a 2023 024 [email or web address] [facility], [address] [place] [address], [address], 4 11:42:21 electr ocardi ogram 2023 024 [email or web address] In-Office Order, Internal Use Only DO Not Attach Compendium DO Not Attach Compendium, Do Not Delete/merge, [id number] 4 11:51:50 XR, chest, 2 view 2023 024 [email or web address] In-Office Order, Internal Use Only DO Not Attach Compendium DO Not Attach Compendium, Do Not Delete/merge, [id number] 4 11:42:21 XR, cervic al spine 2021 022 [email or web address] [facility], [address] , [place], [address], 2 11:41:09 Medication Orders Lamisi l AT 1 % topica l cream 2024 025 [id number], [address] [place], [address], 5 08:57:43 ciclop irox 8 % topica l soluti on 2024 025 [id number], [address] [place], [address], 5 08:57:44 meloxi cam 15 mg tablet 2024 025 [id number], [address] [place], [address], 5 09:41:31 meloxi cam 15 mg tablet 2021 022 [email or web address] [facility][id number], [address] [place], [address], 5 09:00:58 cyclob enzapr ine 10 mg tablet 2021 022 [email or web address] [id number], [address] [place], [address], 4 11:14:46 Patient TargetsNo targets recorded. Patient Instructions Encounter Date Encounter Id Patient Instructions Last Modified By Organization Details Last Modified Time 11/30/2021 [id number] neck: exercises [email or web address] Not available 11/30/2021 11:20:00 healthy upper back: exercises [email or web address] Not available 11/30/2021 11:20:00 Well Visit, Ages 18 to 65: Care Instructions [email or web address] Not available 11/30/2021 11:11:34 When You Want to Lose Weight: Care Instructions [email or web address] Not available 11/30/2021 11:11:34 07/30/2023 [id number] neck: exercises [email or web address] Not available 07/30/2023 11:28:42 healthy upper back: exercises [email or web address] Not available 07/30/2023 11:28:43 Well Visit, Ages 18 to 65: Care Instructions [email or web address] Not available 07/30/2023 11:28:42 When You Want to Lose Weight: Care Instructions [email or web address] Not available 07/30/2023 11:28:43 09/15/2024 [id number] low back pain: exercises [email or web address] Not available 09/15/2024 09:41:23 toenail fungus: care instructions [email or web address] Not available 09/15/2024 09:41:23 10/25/2024 [id number] toenail fungus: care instructions [email or web address] Not available 10/25/2024 08:57:41 Reason for Referral Physical Therapist Referral for Neck pain Please see for neck pain/ shoulder blade on left side Referring Physician: Li Colindres [facility], Encounter Date: 11/30/2021 Physical Therapist Referral for Neck pain Please see for neck pain Referring Physician: Li Colindres [facility], Encounter Date: 07/30/2023 Physical Therapist Referral for Chronic low back pain Please see for LBP Referring Physician: Li Colindres [facility], Encounter Date: 09/15/2024 Results Created Date Observation Date Name Description Value Unit Range Abnormal Flag Note LastModifiedBy Organization Detail LastModifiedTime 11/03/19 24 11/04/2023 CMP14 (REFL EX HGB A1C) glucose 96 mg/dL 70-99 Not Available [facility] ([facility]) [address] [place], [address], 11/05/2023 14:07:29 11/03/19 24 11/04/2023 CMP14 (REFL EX HGB A1C) BUN 8 mg/dL 6-20 Not Available [facility] ([facility]) [address] [facility], [place], [address], 11/05/2023 14:07:29 11/03/19 24 11/04/2023 CMP14 (REFL EX HGB A1C) creatinine 0.74 mg/dL 0.76-1 .27 below low normal Not Available [facility] ([facility]) [address] [place], [address], 11/05/2023 14:07:29 11/03/19 24 11/04/2023 CMP14 (REFL EX HGB A1C) eGFR 119 mL/mi n/1.7 3 >59 Not Available [facility] ([facility]) [address] [place], [address], 11/05/2023 14:07:29 11/03/19 24 11/04/2023 CMP14 (REFL EX HGB A1C) BUN/creatini ne ratio 11 9-20 Not Available [facility] ([facility]) [address] [place], [address], 11/05/2023 14:07:29 11/03/19 24 11/04/2023 CMP14 (REFL EX HGB A1C) sodium 143 mmol/ L 134-14 4 Not Available [facility] ([facility]) [address] [place], [address], 11/05/2023 14:07:29 11/03/19 24 11/04/2023 CMP14 (REFL EX HGB A1C) potassium 4.6 mmol/ L 3.5-5. 2 Not Available [facility] ([facility]) [address] [place], [address], 11/05/2023 14:07:29 11/03/19 24 11/04/2023 CMP14 (REFL EX HGB A1C) chloride 104 mmol/ L 96-106 Not Available [facility] ([facility]) [address] [place], [address], 11/05/2023 14:07:29 11/03/19 24 11/04/2023 CMP14 (REFL EX HGB A1C) carbon dioxide, total 24 mmol/ L 20-29 Not Available [facility] ([facility]) [address] [place], [address], 11/05/2023 14:07:29 11/03/19 24 11/04/2023 CMP14 (REFL EX HGB A1C) calcium 9.6 mg/dL 8.7-10 .2 Not Available [facility] ([facility]) [address] [place], [address], 11/05/2023 14:07:29 11/03/19 24 11/04/2023 CMP14 (REFL EX HGB A1C) protein, total 6.9 g/dL 6.0-8. 5 Not Available [facility] ([facility]) [address] [place], [address], 11/05/2023 14:07:29 11/03/19 24 11/04/2023 CMP14 (REFL EX HGB A1C) albumin 4.7 g/dL 4.1-5. 1 Not Available [facility] ([facility]) [address] [place], [address], 11/05/2023 14:07:29 11/03/19 24 11/04/2023 CMP14 (REFL EX HGB A1C) globulin, total 2.2 g/dL 1.5-4. 5 Not Available [facility] ([facility]) [address] [place], [address], 11/05/2023 14:07:29 11/03/19 24 11/04/2023 CMP14 (REFL EX HGB A1C) bilirubin, total 0.4 mg/dL 0.0-1. 2 Not Available [facility] ([facility]) [address] [place], [address], 11/05/2023 14:07:29 11/03/19 24 11/04/2023 CMP14 (REFL EX HGB A1C) alkaline phosphatase 74 IU/L 44-121 Not Available [facility]) [address] [facility] [place], [address], 11/05/2023 14:07:29 11/03/19 24 11/04/2023 CMP14 (REFL EX HGB A1C) AST (SGOT) 22 IU/L 0-40 Not Available [facility] ([facility]) [address] [place], [address], 11/05/2023 14:07:29 11/03/19 24 11/04/2023 CMP14 (REFL EX HGB A1C) ALT (SGPT) 34 IU/L 0-44 Not Available [facility] ([facility]) [address] [place], [address], 11/05/2023 14:07:29 11/03/19 24 11/04/2023 CBC WITH DIFFE RENTI AL/PL ATELE T WBC 6.9 x10e3 /uL 3.4-10 .8 Not Available [facility] ([facility]) [address] [place], [address], 11/05/2023 14:07:30 11/03/19 24 11/04/2023 CBC WITH DIFFE RENTI AL/PL ATELE T RBC 5.00 x10e6 /uL 4.14-5 .80 Not Available [facility] ([facility]) [address] [place], [address], 11/05/2023 14:07:30 11/03/19 24 11/04/2023 CBC WITH DIFFE RENTI AL/PL ATELE T hemoglobin 15.9 g/dL 13.0-1 7.7 Not Available [facility] ([facility]) [address] [place], [address], 11/05/2023 14:07:30 11/03/19 24 11/04/2023 CBC WITH DIFFE RENTI AL/PL ATELE T hematocrit 47.7 % 37.5-5 1.0 Not Available [facility] ([facility]) [address] [place], [address], 11/05/2023 14:07:30 11/03/19 24 11/04/2023 CBC WITH DIFFE RENTI AL/PL ATELE T MCV 95 fL 79-97 Not Available [facility] ([facility]) [address] [facility], [place], [address], 11/05/2023 14:07:30 11/03/19 24 11/04/2023 CBC WITH DIFFE RENTI AL/PL ATELE T MCH 31.8 pg 26.6-3 3.0 Not Available [facility] ([facility]) [address] [facility], [place], [address], 11/05/2023 14:07:30 11/03/19 24 11/04/2023 CBC WITH DIFFE RENTI AL/PL ATELE T MCHC 33.3 g/dL 31.5-3 5.7 Not Available [facility] ([facility]) [address] [facility], [place], [address], 11/05/2023 14:07:30 11/03/19 24 11/04/2023 CBC WITH DIFFE RENTI AL/PL ATELE T RDW 12.7 % 11.6-1 5.4 Not Available [facility] ([facility]) [address] [facility], [place], [address], 11/05/2023 14:07:30 11/03/19 24 11/04/2023 CBC WITH DIFFE RENTI AL/PL ATELE T platelets 262 x10e3 /uL 150-45 0 Not Available [facility] ([facility]) [address] [place], [address], 11/05/2023 14:07:30 11/03/19 24 11/04/2023 CBC WITH DIFFE RENTI AL/PL ATELE T neutrophils 69 % not estab. Not Available [facility] ([facility]) [address] [facility], [place], [address], 11/05/2023 14:07:30 11/03/19 24 11/04/2023 CBC WITH DIFFE RENTI AL/PL ATELE T lymphs 19 % not estab. Not Available [facility] ([facility]) [address] [facility], [place], [address], 11/05/2023 14:07:30 11/03/19 24 11/04/2023 CBC WITH DIFFE RENTI AL/PL ATELE T monocytes 9 % not estab. Not Available [facility] ([facility]) [address] [facility], [place], [address], 11/05/2023 14:07:30 11/03/19 24 11/04/2023 CBC WITH DIFFE RENTI AL/PL ATELE T eos 2 % not estab. Not Available [facility] ([facility]) [address] [facility], [place], [address], 11/05/2023 14:07:30 11/03/19 24 11/04/2023 CBC WITH DIFFE RENTI AL/PL ATELE T basos 1 % not estab. Not Available [facility] ([facility]) [address] [facility], [place], [address], 11/05/2023 14:07:30 11/03/19 24 11/04/2023 CBC WITH DIFFE RENTI AL/PL ATELE T immature cells [employer] Not Available [facility] ([facility]) [address] [place], [address], 11/05/2023 14:07:30 11/03/19 24 11/04/2023 CBC WITH DIFFE RENTI AL/PL ATELE T neutrophils (absolute) 4.8 x10e3 /uL 1.4-7. 0 Not Available [facility] ([facility]) [address] [place], [address], 11/05/2023 14:07:30 11/03/19 24 11/04/2023 CBC WITH DIFFE RENTI AL/PL ATELE T lymphs (absolute) 1.3 x10e3 /uL 0.7-3. 1 Not Available [facility] ([facility]) [address] [place], [address], 11/05/2023 14:07:30 11/03/19 24 11/04/2023 CBC WITH DIFFE RENTI AL/PL ATELE T monocytes(ab solute) 0.6 x10e3 /uL 0.1-0. 9 Not Available [facility] ([facility]) [address] [facility], [place], [address], 11/05/2023 14:07:30 11/03/19 24 11/04/2023 CBC WITH DIFFE RENTI AL/PL ATELE T eos (absolute) 0.1 x10e3 /uL 0.0-0. 4 Not Available [facility] ([facility]) [address] [facility], [place], [address], 11/05/2023 14:07:30 11/03/19 24 11/04/2023 CBC WITH DIFFE RENTI AL/PL ATELE T baso (absolute) 0.1 x10e3 /uL 0.0-0. 2 Not Available [facility] ([facility]) [address] [place], [address], 11/05/2023 14:07:30 11/03/19 24 11/04/2023 CBC WITH DIFFE RENTI AL/PL ATELE T immature granulocytes 0 % not estab. Not Available [facility] ([facility]) [address] [place], [address], 11/05/2023 14:07:30 11/03/19 24 11/04/2023 CBC WITH DIFFE RENTI AL/PL ATELE T immature grans (abs) 0.0 x10e3 /uL 0.0-0. 1 Not Available [facility] ([facility]) [address] [place], [address], 11/05/2023 14:07:30 11/03/19 24 11/04/2023 CBC WITH DIFFE RENTI AL/PL ATELE T NRBC [employer] Not Available [facility] ([facility]) [address] [facility], [place], [address], 11/05/2023 14:07:30 11/03/19 24 11/04/2023 CBC WITH DIFFE RENTI AL/PL ATELE T hematology comments: [employer] Not Available [facility] ([facility]) [address] [facility], [place], [address], 11/05/2023 14:07:30 11/03/19 24 11/04/2023 LIPID PANEL cholesterol, total 200 mg/dL 100-19 9 above high normal Not Available [facility] ([facility]) [address] [place], [address], 11/05/2023 14:07:30 11/03/19 24 11/04/2023 LIPID PANEL triglyceride s 161 mg/dL 0-149 above high normal Not Available [facility] ([facility]) [address] [place], [address], 11/05/2023 14:07:30 11/03/19 24 11/04/2023 LIPID PANEL HDL cholesterol 42 mg/dL >39 Not Available [facility]) [address] [place], [address], 11/05/2023 14:07:30 11/03/19 24 11/04/2023 LIPID PANEL VLDL cholesterol elen 29 mg/dL 5-40 Not Available [facility] ([facility]) [address] [place], [address], 11/05/2023 14:07:30 11/03/19 24 11/04/2023 LIPID PANEL LDL chol calc ([facility]) 129 mg/dL 0-99 above high normal Not Available [facility] ([facility]) [address] [place], [address], 11/05/2023 14:07:30 11/03/19 24 11/04/2023 LIPID PANEL LDL calc comment: [employer] Not Available [facility] ([facility]) [address] [facility], [place], [address], 11/05/2023 14:07:30 11/03/19 24 11/04/2023 CHLAM YDIA/ GC AMPLI FICAT ION chlamydia trachomatis, MATTHEW Negati ve negati ve Not Available [facility] ([facility]) [address] [facility], [place], [address], 11/05/2023 14:07:31 11/03/19 24 11/04/2023 CHLAM YDIA/ GC AMPLI FICAT ION neisseria gonorrhoeae, MATTHEW Negati ve negati ve Not Available [facility] ([facility]) [address] [facility], [place], [address], 11/05/2023 14:07:31 11/03/19 24 11/04/2023 HCV ANTIB LUCAS RFX TO QUANT PCR HCV Ab Non Reacti ve non reacti ve Not Available [facility] ([facility]) [address] [facility], [place], [address], 11/05/2023 14:07:31 11/03/19 24 11/04/2023 HCV ANTIB LUCAS RFX TO QUANT PCR interpretati on: Commen t Not infec amelia with HCV unles s early or acute infec tion is suspe cted (whic h may be delay ed in an immun ocomp romis ed indiv idual ), or other evide nce exist s to indic ate HCV infec tion. Not Available [facility] ([facility]) [address] [facility], [place], [address], 11/05/2023 14:07:31 11/03/19 24 11/04/2023 HIV AB/P2 4 AG WITH REFLE X HIV Ab/P24 Ag screen Non Reacti ve non reacti ve HIV Negat abner HIV-1 /HIV- 2 antib odies and HIV-1 p24 antig en were NOT detec amelia. There is no labor atory evide nce of HIV infec tion. Not Available [facility] ([facility]) [address] [place], [address], 11/05/2023 14:07:32 11/03/19 24 11/05/2023 SYPHI LIS AB REFLE X RPR QUANT donor syphilis (T pallidum) Non Reacti ve non reacti ve Test perfo rmed with Beckm an Pfeffermind Gamest er PK TP kit. Not Available [facility] ([facility]) [address] [place], [address], 11/05/2023 14:07:32 11/03/19 24 11/04/2023 TSH RFX ON ABNOR MAL TO FREE T4 TSH 1.730 uIU/m L 0.450- 4.500 Not Available [facility] ([facility]) [address] [facility], [place], [address], 11/05/2023 14:07:33 11/03/19 24 11/04/2023 MAGNE SIUM magnesium 2.1 mg/dL 1.6-2. 3 Not Available [facility] ([facility]) [address] [place], [address], 11/05/2023 14:07:33 11/03/1911/04/2023 HBSAG SCREE N HBsAg screen Negati ve negati ve Not Available [facility] ([facility]) [address] [place], [address], 11/05/2023 14:07:34 11/03/1911/04/2023 HEP B CORE AB, TOT hep B core Ab, tot Negati ve negati ve Not Available [facility] ([facility]) [address] [place], [address], 11/05/2023 14:07:34 09/16/1903 1009/16/2024 CMP14 (REFL EX HGB A1C) glucose 98 mg/dL 70-99 normal Not Available [facility] ([facility]) [address] [place], [address], 09/16/2024 06:14:52 09/16/19 25 09/16/2024 CMP14 (REFL EX HGB A1C) BUN 13 mg/dL 6-20 normal Not Available [facility] ([facility]) [address] [place], [address], 09/16/2024 06:14:52 09/16/19 25 09/16/2024 CMP14 (REFL EX HGB A1C) creatinine 0.85 mg/dL 0.76-1 .27 normal Not Available [facility] ([facility]) [address] [place], [address], 09/16/2024 06:14:52 09/16/19 25 09/16/2024 CMP14 (REFL EX HGB A1C) eGFR 113 mL/mi n/1.7 3 >59 normal Not Available [facility] ([facility]) [address] [place], [address], 09/16/2024 06:14:52 09/16/19 25 09/16/2024 CMP14 (REFL EX HGB A1C) BUN/creatini ne ratio 15 9-20 normal Not Available [facility] ([facility]) [address] [place], [address], 09/16/2024 06:14:52 09/16/19 25 09/16/2024 CMP14 (REFL EX HGB A1C) sodium 143 mmol/ L 134-14 4 normal Not Available [facility] ([facility]) [address] [place], [address], 09/16/2024 06:14:52 09/16/19 25 09/16/2024 CMP14 (REFL EX HGB A1C) potassium 4.4 mmol/ L 3.5-5. 2 normal Not Available [facility] ([facility]) [address] [place] [place], [address], 09/16/2024 06:14:52 09/16/19 25 09/16/2024 CMP14 (REFL EX HGB A1C) chloride 102 mmol/ L 96-106 normal Not Available [facility] ([facility]) [address] [place] [place], [address], 09/16/2024 06:14:52 09/16/19 25 09/16/2024 CMP14 (REFL EX HGB A1C) carbon dioxide, total 21 mmol/ L 20-29 normal Not Available [facility] ([facility]) [address] [place] [place], [address], 09/16/2024 06:14:52 09/16/19 25 09/16/2024 CMP14 (REFL EX HGB A1C) calcium 10.0 mg/dL 8.7-10 .2 normal Not Available [facility] ([facility]) [address] [place] [place], [address], 09/16/2024 06:14:52 09/16/1909/16/2024 CMP14 (REFL EX HGB A1C) protein, total 7.2 g/dL 6.0-8. 5 normal Not Available [facility] ([facility]) [address] [place], [address], 09/16/2024 06:14:52 09/16/1909/16/2024 CMP14 (REFL EX HGB A1C) albumin 5.2 g/dL 4.1-5. 1 above high normal Not Available [facility] ([facility]) [address] [place], [address], 09/16/2024 06:14:52 09/16/19 25 09/16/2024 CMP14 (REFL EX HGB A1C) globulin, total 2.0 g/dL 1.5-4. 5 Not Available [facility] ([facility]) [address] [place] [place], [address], 09/16/2024 06:14:52 09/16/1909/16/2024 CMP14 (REFL EX HGB A1C) bilirubin, total 0.4 mg/dL 0.0-1. 2 normal Not Available [facility] ([facility]) [address] [place] [place], [address], 09/16/2024 06:14:52 09/16/19 25 09/16/2024 CMP14 (REFL EX HGB A1C) alkaline phosphatase 72 IU/L 44-121 normal Not Available [facility] ([facility]) [address] [place] [place], [address], 09/16/2024 06:14:52 09/16/19 25 09/16/2024 CMP14 (REFL EX HGB A1C) AST (SGOT) 17 IU/L 0-40 normal Not Available [facility] ([facility]) [address] [facility], [place], [address], 09/16/2024 06:14:52 09/16/1909/16/2024 CMP14 (REFL EX HGB A1C) ALT (SGPT) 27 IU/L 0-44 normal Not Available [facility] ([facility]) [address] [place], [address], 09/16/2024 06:14:52 09/16/19 25 09/16/2024 LIPID PANEL cholesterol, total 188 mg/dL 100-19 9 normal Not Available [facility] ([facility]) [address] [place], [address], 09/16/2024 06:14:53 09/16/19 25 09/16/2024 LIPID PANEL triglyceride s 72 mg/dL 0-149 normal Not Available [facility] ([facility]) [address] [place], [address], 09/16/2024 06:14:53 05/07/20 25 09/16/2024 LIPID PANEL HDL cholesterol 44 mg/dL >39 normal Not Available [facility] ([facility]) [address] [facility], [place], [address], 09/16/2024 06:14:53 09/16/19 25 09/16/2024 LIPID PANEL VLDL cholesterol elen 13 mg/dL 5-40 Not Available [facility] ([facility]) [address] [facility], [place], [address], 09/16/2024 06:14:53 09/16/19 25 09/16/2024 LIPID PANEL LDL chol calc ([facility]) 131 mg/dL 0-99 above high normal Not Available [facility] ([facility]) [address] [facility], [place], [address], 09/16/2024 06:14:53 09/16/19 25 09/16/2024 LIPID PANEL LDL calc comment: [employer] SUPER[employer]OR Not Available [facility] ([facility]) [address] [facility], [place], [address], 09/16/2024 06:14:53 07/30/19 24 07/30/2023 elect rocar diogr am No observ ation record ed. [email or web address] In-Office Order Internal Use Only DO Not Attach Compendium DO Not Attach Compendium, Do Not Delete/merge, 07/30/2023 16:29:15 07/30/19 elect rocar diogr am No observ ation record ed. [email or web address] In-Office Order Internal Use Only DO Not Attach Compendium DO Not Attach Compendium, Do Not Delete/merge, 07/30/2023 12:26:54 10/29/19 24 10/29/2023 XR, scapu la Scapul a Left 2 views Reason : pain in should er COMPAR RADHA: None. FINDIN GS: No fractu res or bone lesion s. No arthri tic change s. Normal soft tissue s. IMPRES DAVID: Normal . WSN: [id number] Orderi ng Physic aide: Kinga Colindres Dictat ed By: Ladonna Prince MD Dictat ed Date/T gunnar: 12:51 p Review ed By: Ladonna Prince MD Signed By: Ladonna Prince MD Signed Date/T gunnar: 12:51 pm Transc ribed By: LIANNE Transc ribed Date/T gunnar: 12:51 pm Patien t Class: Outpat ient [facility] (Outpt Imaging) [address], [place], [address], 10/30/2023 10:26:29 10/29/19 24 10/29/2023 XR, scapu la No observ ation record ed. [email or web address] [facility] [address] [place], [address], 10/30/2023 11:51:43 09/21/19 25 09/20/2024 US, pelvi [...] x 1.3 cm. It produc es mild small animal veterinarian ior acoust ic shadow ing and there is no signif icant underwriting internship al vascul arity on color Dopple [...] inclus ion or pilar cyst, althou gh small animal veterinarian ior acoust ic shadow would be atypic al. A focus of fat necros is could also be consid ered. If the patien t's palpab le findin g increa ses in size or become s progre ssivel y sympto matic, correl ation with MRI could be consid ered. WSN: [id number] Orderi ng Physic aide: Kinga Colindres ai Dictat ed By: Roddy Frost MD Dictat ed Date/T gunnar: 4:24 pm Review ed By: Roddy Frost MD Signed By: Roddy Frost MD Signed Date/T gunnar: 4:24 pm Transc ribed By: LIANNE Transc ribed Date/T gunnar: 4:07 pm Patien t Class: Outpat ient [facility] (Outpt Imaging) [address] [place] [address], [address], 09/20/2024 18:58:19 09/21/19 25 09/20/2024 US, butto ck No observ ation record ed. [email or web address] In-Office Order Internal Use Only DO Not Attach Compendium DO Not Attach Compendium, Do Not Delete/merge, [id number] 09/23/2024 11:09:25 Result Notes Documentation Provider Name and Address Organization Details Recorded Time Xr, Scapula : Scapula Left 2 views Reason: pain in shoulder COMPARISON: None. FINDINGS: No fractures or bone lesions. No arthritic changes. Normal soft tissues. IMPRESSION: Normal. WSN: [id number] Ordering Physician: Li Colindres Dictated By: Johnathan Bustillos MD Dictated Date/Time: 10/29/23 12:51 p Reviewed By: Johnathan Bustillos MD Signed By: Johnathan Bustillos MD Signed Date/Time: 10/29/23 12:51 pm Transcribed By: LIANNE Transcribed Date/Time: 10/29/23 12:51 pm Patient Class: Outpatient Li Colindres MD [address] [facility] [address], [place], [address], [facility] 10/29/2023 18:32:49 Problems Name Problem SNOMED Code Status Onset Date Resolution Date Notes Provider Name and Address Organization Details Recorded Time Overweight 018564148 Active 022 Li Colindres MD [address] [facility] [address], [place], [address], [facility] 11:11:00 Problem Notes None recorded. Procedures Surgical History Date Name Laterality Status Provider Name and Address Organization Details Recorded Time removal of pilonidal cyst completed Anum Medina MA [facility] 11/30/2021 10:31:52 extraction of wisdom tooth completed Anum Medina MA [facility] 11/30/2021 10:31:59 Imaging Results None recorded. Procedure Notes None recorded. Medical Equipment None Reported. Allergies No known drug allergies Medications Name Sig Start Date Stop Date Status Note LastModified by Organization Details LastModified Time cyclobenzap rine 10 mg tablet Take 1 tablet every day by oral route as needed for 5 days. 07/29 completed Not Available Not Available Not Available meloxicam 15 mg tablet Take 1 tablet every day by oral route as needed for 30 days. 2024 active Not Available Not Available Not Avai lable ciclopirox 8 % topical solution APPLY TO THE AFFECTED AREA(S) BY TOPICAL ROUTE ONCE DAILY PREFERABL Y AT BEDTIME OR 8 HOURS BEFORE WASHING 2024 active Not Available Not Available Not Avai lable Lamisil AT 1 % topical cream APPLY TO THE AFFECTED AND SURROUNDI NG AREAS OF SKIN BY TOPICAL ROUTE ONCE DAILY FOR 2-4 WEEKS 2024 active Not Available Not Available Not Avai lable terbinafine HCl 250 mg tablet Take 1 tablet every day by oral route for 42 days. 2024 active Not Available Not Available Not Avai lable Multivitami n Gummies 2 gummies daily 09/15 completed Not Available Not Available Not Available Vitals Date Recorded Body height Body mass index (BMI) Body weight Heart rate Oxygen saturation Oxygen saturation in Arterial blood by Pulse oximetry Body temperature Systolic blood pressure Diastolic blood pressure Provider Name and Address Organization Details Last Updated DateTime 4 182.88 cm 27.3 kg/m2 49826.1 7 g 77 /min 97 % 97 % 97.9 [degF] 111 mm[Hg] 70 mm[Hg] Arianne Arboleda MA [facility] 4 11:14:22 Date Recorded Body height Body mass index (BMI) Body weight Oxygen saturation Oxygen saturation in Arterial blood by Pulse oximetry Body temperature Heart rate Systolic blood pressure Diastolic blood pressure Provider Name and Address Organization Details Last Updated DateTime 5 182.88 cm 25.6 kg/m2 83809.1 7 g 100 % 100 % 97.7 [degF] 67 /min 110 mm[Hg] 70 mm[Hg] Hansa Velasquez MA [facility] 5 08:59:59 Date Recorded Body height Body mass index (BMI) Body weight Heart rate Oxygen saturation Oxygen saturation in Arterial blood by Pulse oximetry Body temperature Systolic blood pressure Diastolic blood pressure Provider Name and Address Organization Details Last Updated DateTime 2 182.88 cm 28.4 kg/m2 27926.5 1 g 67 /min 97 % 97 % 98.06 [degF] 120 mm[Hg] 78 mm[Hg] Anum Medina MA [facility] 2 10:35:07 Social History Question Answer Notes LastModified by Organizat ion Details LastModified Time Tobacco Smoking Status Former Smoker Anum Medina MA [place] [facility] 11/30/2021 10:42:28 Is Blood Transfusion Acceptable In [...] When Did You Quit Smoking? 11-15yearssin ronny roger Quit In 2007 Information not available 11/30/2021 Do You Take Precautions To Prevent Distracted Driving? Yes Information not available 11/30/2021 How Often Do You Need To Have Someone Help You When You Read Instructions, Pamphlets, Or Other Written Material From Your Doctor Or Pharmacy? Never Information not available 11/30/2021 Have You Served In The ? 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 Occasional Information not available 11/30/2021 Mental Status None recorded. Family History Relationship Description Onset Age of this Age Resolved Age Notes LastModified by Organization Details LastModified Time Father Diabetes mellitus Not available 2021 10:21:37 Mother Obstructive sleep apnea syndrome [email or web address] Not available 2023 12:29:16 Medical History Condition Response Chicken Pox Y ADHD Y Immunizations Vaccine Type Date Status Note Provider Nam e and Address Organization Details Recorded Time COVID-19, mRNA, LNP-S, PF, 30 mcg/0.3 mL dose 09/20/[address] [facility] 11/30/2021 10:29:48 COVID-19, mRNA, LNP-S, PF, 30 mcg/0.3 mL dose 08/30/[address] [facility] 11/30/2021 10:29:49 COVID-19, mRNA, LNP-S, PF, 100 mcg/0.5mL dose or 50 mcg/0.25mL dose 04/27/[address] [facility] 07/30/2023 11:14:03 Tdap 10/28/2023 completed Not Available [facility] 10/25/2024 08:10:59 Past Encounters Encounter ID Performer Location Encounter Start Date Encounter Closed Date Diagnosis/Indication Diagnosis SNOMED-CT Code Diagnosis ICD10 Code Diagnosis Note [id number] Li Colindres MD Main Office [address] [facility] [facility] [address] [facility] [place] [address] 11/30/2021 10:07:21 11/30/2021 11:41:08 Adult health examination 795069260 Z00.00 Patient was counseled on healthy diet, exercise and nutrition due to Body mass index is 28.4 kg/m . Prostate/C olon CA hx?: no fhx, asymptomat ic Vaccines:T dAP: script providedZo ster Rec: not [id number]: not dueInfluen za: not in seaonCovid : 08/30/20, 09/20/20, 04/23/21 Routine labs today, with STI workup Immunizati on status reviewed. Will screen based on risk factors. Regular dental and ophtho care advised as well as seat belt and sunscreen use. Distracted driving discussed. Medication reconciled . Fatigue 84400487 R53.83 Hyperlipidemia 19393264 E78.5 Venereal d isease screening 300058422 Z11.3 Patient ne w to provider 1316857648 38139 Z76.89 Administra tion of viral vaccine 98808006 Z23 Body mass index 25-29 - overweight 025844062 E66.3 Z68.25 - Diet and exercise discussed- Encouraged to loose weight.- Avoid starchy and fatty food- Encouraged use of green vegetables and fruits Overweight 368592032 E66 .3 Snoring 00185680 R06.83 Neck pain 23259427 M54.2 Cervicalgi a with radiculopa thy.Risk of sedation with MSK relaxant advised. He is aware not to operate machinery, MV or drink while on meds.Take mobic with food and avoid other NSAIDSent for PT/exercis es provided. Scapulalgia 95153586 M25 .519 [id number] Li Colindres MD Main Office [address] [facility] [address] [place] [address], [place] [address] 07/30/2023 10:55:33 07/30/2023 11:51:49 Adult health examination 539549004 Z00.00 Patient was counseled on healthy diet, exercise and nutrition due to Body mass index is 27.3 kg/m . Prostate/C olon CA hx?: no fhx, asymptomat ic Vaccines:T dAP: script providedZo ster Rec: not [id number]: not dueInfluen za: not in seasonCovi d: Encourage updated vaccine. Routine labs today, with STI workup Immunizati on status reviewed. Will screen based on risk factors. Regular dental and ophtho care advised as well as seat belt and sunscreen use. Distracted driving discussed. Medication reconciled . Fatigue 88420022 R53.83 Hyperlipidemia 48848934 E78.5 Administra tion of viral vaccine 05270090 Z23 Body mass index 25-29 - overweight 345677355 E66.3 Z68.25 - Diet and exercise discussed- Encouraged to loose weight.- Avoid starchy and fatty food- Encouraged use of green vegetables and fruits Overweight 260965199 E66 .3 Snoring 74940922 R06.83 He will work on weight loss first if he continue to snore he will let me know and we can consider having him see sleep med.His mom has TOBI Venereal d isease screening 880639882 Z20.2 Z11.3 Z72.89 Scapulalgia 08443540 M25 .519 Neck pain 58212244 M54.2 Cervicalgi a with radiculopa thy.Radicu lopathy sx improved.M eloxicam and msk relaxant did not help.PT provided some relief, but cut it short due to cost, open to restarting - referral provided.H e did not get x-ray as instructio n.If no improvemen t he will call and can consider physiatry eval. Chest discomfort 8668342 09 R07.89 occurred 2 weeks ago, feels like msk but not reproducib le on palpation. Occurs when he stretches. I suspect this is msk related as it occurs when stretching but will get baseline ECG.ED precaution discussed. Stretching exercises advised.If no improvemen t he was advised to call. [id number] Li Colindres MD Main Office [address] [facility] [address] [facility] [place], [place] [address] 09/15/2024 08:48:23 09/15/2024 09:45:18 Adult health examination 066477658 Z00.00 Patient was counseled on healthy diet, exercise and nutrition due to Body mass index is 25.6 kg/m . Prostate/C olon CA hx?: no fhx, asymptomat ic Vaccines:T dAP: 10/28/23Zos ter Rec: not [id number]: not dueInfluen za: not in seasonCovi d: Encourage updated vaccine. Routine labs today Immunizati on status reviewed. Will screen based on risk factors. Regular dental and ophtho care advised as well as seat belt and sunscreen use. Distracted driving discussed. Medication reconciled . Onychomycosis 403495188 B35.1 Will tx after I get lft. He is aware he will need to repeat LFT 6 weeks after I send tx due to hepatic toxicity. Will follow up tele health 7 weeks. Fatigue 49878269 R53.83 Z00.00 Hyperlipidemia 39283405 E78.5 Z00.00 FASTING Chronic low back pain 27 3043010 M54.42 G89.29 with radiculopa thy.Will send Meloxicam aware not to use with other otc nsaid, advised to take with meal and hydration enforced.E ncouraged PTCan consider xray if no improvemen t.If no improvemen t will consider MRI/physia try eval after trial po steroid/ga bapentin/m sk relaxant. Cyst of skin 132969379 L 72.9 No drainage warmth or erythema hard mobile nodular lesion will get US the consider surgeon eval as it is bothering him. No sign of infection or role in abx. [id number] Li Colindres MD Main Office [address] [facility] [address] [place] [address] 10/25/2024 08:09:53 10/25/2024 09:57:48 Onychomycosis 374092990 B35.1 Chronic low back pain 27 2031014 G89.29 M54.42 Health Concerns Section Related Observation LastModified by Organization Detai ls LastModified Time None Recorded Concern Status LastModified by Organization Details LastModified Time None Recorded Advance Directives Directive None Recorded Payers Insurance Date Sequence Insurance Name Policy Number Policy Bowman Covered Member ID Bowman Member ID Guarantor Name 10/25/2024 1 LEONID [id number] Ruddy Romero [id number] Willie Romero Notes Date Note Type Note Provider Name and Address Organization Details Recorded Time 11/30/2021 text/html Back PainReporte d bypatient.Location:f rom neck radiates to finger tips Quality:tingling Severity:worsening [...] follows every 6mo.Eye: due, advised followsDiet: no restrictionActivity: walk dogs and 1/week 3-4mile walk Li Colindres MD [address], [address] 11/30/2021 11:36:40 07/30/2023 text/html Angina/Chest PainReported bypatient.Location:c hest; Does not radiates. Quality:tightness Severity:not limiting Duration:lasts seconds Context:Not tender to touch, does not occur when leaning forward. Aggravating Factors:worse with activity(stretching back) Associated Symptoms:no dyspnea; no decrease in exercise capacity; no fatigue; no nocturnal episodes; no resting episodes; no associated palpitations; no associated dizziness; no calf pain, no travel in last 4 weeks. Here for PE visit. Reviewed chronic medications and medical problems. Discussed screening guidelines as well as goals for fitness and weight management. Brittany feliz, [facility] 08/07/2023 10:27:35 09/15/2024 text/html Back PainReporte d bypatient.Location:p ain radiating to the buttocks;pain radiating to the legs Quality:tingling Severity:worsening Duration:acute; chronic Onset/Timing:Started in july. Context:prior back problems Aggravating Factors:movement/pos itioning Associated Symptoms:no fever; no weak limbs; no [...] fungus in left big. Li Colindres MD [address] [address], [place], [address], [facility] 09/15/2024 09:44:41 10/25/2024 text/html The patient is a 38-year-old male who participated in a telehealth follow-up appointment regarding onychomycosis, primarily affecting the left great toe and the second and third toes. He began treatment with oral terbinafine after initial liver function tests (LFTs) were reassuring. The patient reports some improvement in his condition. Additionally, he has athlete's foot, and notes that the flakiness in his foot has also improved. He denies any symptoms of hepatotoxicity, such as yellowing of the skin or eyes, and reports taking the medication without any side effects. He was advised to obtain LFTs prior to his second refill but has not yet done so. He was reminded of the importance of this due to the risk of hepatotoxicity associated with terbinafine. The patient plans to complete the LFTs next week, as he is currently recovering from a cyst removal on his back. He has also delayed starting physical therapy for his lower back due to the recent surgical procedure. Li Colindres MD [address] [address], [place], [address], [facility] 10/25/2024 08:58:26
== END 2024-11-02 12:58 | disposition home or self-care (01) ==
LOC: HO.HGS 12:29
PROVIDERS: PCP Internal Medicine
DX: Z98.890 Other specified postprocedural states (principal); Z87.2 Personal history of diseases of the skin and subcutaneous tissue; L72.9 Follicular cyst of the skin and subcutaneous tissue, unspecified
CPT/HCPCS: 99213